=== PATIENT | male | born 1965 | race Two or more races ===

== ENCOUNTER 2020-12-26 09:30 | Inpatient (IN) | payer OTHER ==
[~2020-12-26] VITALS: Ht 172.7 cm; Wt 121.3 kg
[2020-12-26 10:10] LABS: Basophils # (auto) 0.1 10 ^3/uL (0-0.2); Basophils % (auto) 0.6 % (0.0-2.0); Eosinophils # (auto) 0.1 10 ^3/uL (0-0.8); Eosinophils % (auto) 0.6 % (0.0-7.0); Hematocrit 37.8 % (41.0-53.0); Hemoglobin 13.2 g/dL (13.5-17.5); Lymphocytes # (auto) 0.8 10 ^3/uL (0.4-5.4); Lymphocytes % (auto) 8.5 % (10.0-50.0); Mean Corpuscular Hgb Conc. 34.9 g/dL (32.0-36.0); Mean Corpuscular Volume 83.2 fL (80.0-100.0); Monocytes # (auto) 0.8 10 ^3/uL (0-1.3); Monocytes % (auto) 9.2 % (0.0-12.0); Neutrophils # (auto) 7.3 10 ^3/uL (1.6-8.6); Neutrophils % (auto) 81.1 % (37.0-80.0); Nucleated Red Blood Cells % 0.1 %; Platelet Count (auto) 276 10^3/uL (140-450); Red Blood Cells 4.54 10^6/uL (4.5-5.90); Red Cell Distribution Width 13.7 % (11.8-14.3)
[2020-12-26 10:34] LABS: Albumin 3.3 g/dL (3.4-5.0); Calcium 8.9 mg/dL (8.5-10.1); Potassium 3.6 mmol/L (3.5-5.1)
[2020-12-26 10:39] LABS: BUN/Creatinine Ratio 17.6; Bilirubin, Total 0.5 mg/dL (0.2-1.0); Total Protein 8.6 g/dL (6.4-8.2)
[2020-12-26] MEDS ORDERED: OMNIPAQUE ORAL SOLN 500ml 12mg/ml PO ONE (10:45)
[2020-12-26] MEDS ORDERED: ONDANSETRON HCL 4 MG/2 ML VIAL IV ONE (11:15)
[2020-12-26 11:48] LABS: INR 1.06 (0.9-1.15); Partial Thromboplastin Time 27.8 sec (23.0-31.2)
[2020-12-26] MEDS ORDERED: IOHEXOL 300 MG/ML 100ML BOTTLE IJ ONE (13:09)
[2020-12-26] MEDS: PANTOPRAZOLE 40 MG/10 ML VIAL INJ IV SCH ×2 (13:45→22:24)
[2020-12-26] MEDS: SUCRALFATE 1 GM/10 ML ORAL SUSP PO SCH ×3 (13:45→22:00)
[2020-12-26] MEDS ORDERED: NITROGLYCERIN 0.4 MG SL TAB SL PRN (16:30)
[2020-12-26] MEDS ORDERED: ACETAMINOPHEN 500 MG TAB PO PRN (16:30)
[2020-12-26] MEDS ORDERED: MORPHINE SULF INJ 2 MG/ML SYRINGE 1ML IV PRN (16:30)
[2020-12-26] MEDS ORDERED: DOCUSATE SOD 100 MG CAP PO PRN (16:30)
[2020-12-26] MEDS ORDERED: ONDANSETRON HCL 4 MG/2 ML VIAL IV PRN (16:30)
[2020-12-26] MEDS ORDERED: HYDROcodone-ACET 5/325MG TAB PO PRN (16:30)
[2020-12-26 16:37] LABS: Urine Bacteria FEW /hpf (None Seen); Urine Blood Negative /uL (Negative); Urine WBC 4 /hpf (0 - 3)
[2020-12-26] MEDS: MORPHINE SULF INJ 2 MG/ML SYRINGE 1ML IV PRN ×2 (16:38→22:24)
[2020-12-26 16:47] LABS: Cholesterol 138 mg/dL (< 200)
[2020-12-26 16:49] LABS: HDL Cholesterol 32 mg/dL (40-59); LDL Cholesterol 94 mg/dL (< 100); Triglycerides 123 mg/dL (< 150)
[2020-12-26 20:34] VITALS: BP 148/99
[2020-12-26 21:54] VITALS: BP 148/99
[2020-12-27] MEDS: MORPHINE SULF INJ 2 MG/ML SYRINGE 1ML IV PRN (03:47)
[2020-12-27 05:00] VITALS: BP 155/89
[2020-12-27] MEDS: SUCRALFATE 1 GM/10 ML ORAL SUSP PO SCH ×2 (06:21→11:30)
[2020-12-27] MEDS ORDERED: LIDOCAINE VISCOUS 2% 15ML UD ONE (08:11)
[2020-12-27] MEDS ORDERED: SODIUM CHLORIDE LOCK 10 ML ONE (08:11)
[2020-12-27] MEDS ORDERED: diphenhdrAMINE HCL 50 MG/1 ML VL ONE (08:12)
[2020-12-27] MEDS ORDERED: NALOXONE HCL 0.4 MG/ML VIAL ONE (08:12)
[2020-12-27] MEDS ORDERED: FLUMAZENIL 0.1 MG/ML INJ 10ML MDV IV ONE (08:12)
[2020-12-27] MEDS: MIDAZOLAM HCL 5 MG/ML-1ML VIAL ONE ×2 (09:03→09:07)
[2020-12-27] MEDS: fentaNYL CITRATE 100 MCG/2 ML VL ONE ×2 (09:03→09:07)
[2020-12-27 09:30] VITALS: BP 141/83
[2020-12-27] MEDS ORDERED: GADOTERATE MEG 7.5 MMOL/15ml INJ (0.5MMOL/ml) IV ONE (09:57)
[2020-12-27] MEDS: PANTOPRAZOLE 40 MG/10 ML VIAL INJ IV SCH (11:14)
[2020-12-27 14:06] LABS: Calcium 8.8 mg/dL (8.5-10.1); Potassium 3.8 mmol/L (3.5-5.1)
[2020-12-27 14:08] LABS: BUN/Creatinine Ratio 20.7
== END 2020-12-27 14:00 | disposition left against medical advice (07) | DRG 444 ==
LOC: ER 09:30 → OVERFLOW 09:31 → CENTRAL 20:34
PROVIDERS: ADMIT Nurse Practitioner Acute Care; ATTEND Internal Medicine
PROC: 0DB68ZX Excision of Stomach, Via Natural or Artificial Opening Endoscopic, Diagnostic (ICD-10-PCS; principal; 2020-12-27 09:07)
DX: K80.20 Calculus of gallbladder without cholecystitis without obstruction (principal); G06.1 Intraspinal abscess and granuloma; Z68.41 Body mass index [BMI] 40.0-44.9, adult; E16.2 Hypoglycemia, unspecified; E66.9 Obesity, unspecified; R73.9 Hyperglycemia, unspecified; R16.0 Hepatomegaly, not elsewhere classified; Z20.822 Contact with and (suspected) exposure to COVID-19; Z53.29 Procedure and treatment not carried out because of patient's decision for other reasons; Z88.8 Allergy status to other drugs, medicaments and biological substances; Z82.49 Family history of ischemic heart disease and other diseases of the circulatory system; Z83.3 Family history of diabetes mellitus
CPT/HCPCS: 36415; 71045; 72131; 72158; 74177; 76705; 80048; 80053; 80061; 81001; 82306; 82607; 83036; 83735; 84154; 84443; 85025; 85610; 85652; 85730; 86141; 87040; 87077; 87081; 87186; 93005; 96374; 96376; C9113; G0378; J2250; J2405

== ENCOUNTER → 2022-08-18 | Outpatient (CLI) | payer OTHER ==
[2022-08-18 10:40] LABS: Basophils # (auto) 0.1 10 ^3/uL (0-0.2); Basophils % (auto) 0.7 % (0.0-2.0); Eosinophils # (auto) 0.2 10 ^3/uL (0-0.8); Eosinophils % (auto) 2.6 % (0.0-7.0); Hematocrit 44.1 % (41.0-53.0); Hemoglobin 14.8 g/dL (13.5-17.5); Lymphocytes # (auto) 1.5 10 ^3/uL (0.4-5.4); Lymphocytes % (auto) 20.7 % (10.0-50.0); Mean Corpuscular Hemoglobin 27.8 pg (28.0-32.0); Mean Corpuscular Hgb Conc. 33.5 g/dL (32.0-36.0); Mean Corpuscular Volume 82.9 fL (80.0-100.0); Monocytes # (auto) 0.6 10 ^3/uL (0-1.3); Monocytes % (auto) 8.7 % (0.0-12.0); Neutrophils % (auto) 67.3 % (37.0-80.0); Nucleated Red Blood Cells % 0.1 %; Red Blood Cells 5.33 10^6/uL (4.5-5.90); Red Cell Distribution Width 13.9 % (11.8-14.3); White Blood Cell 7.4 10^3/uL (4.4-10.8)
[2022-08-18 11:31] LABS: Calcium 8.9 mg/dL (8.5-10.1); Potassium 3.7 mmol/L (3.5-5.1)
[2022-08-18 11:33] LABS: % Iron Saturation 23.2 % (20-55)
[2022-08-18 11:52] LABS: BUN/Creatinine Ratio 22.1; Bilirubin, Total 0.7 mg/dL (0.2-1.0); Total Protein 7.8 g/dL (6.4-8.2)
[2022-08-18 11:56] LABS: Free T4 (Free Thyroxine) 1.2 ng/dL (0.89-1.76); Prostate Specific Antigen 0.44 ng/mL (0.0-4.0)
[2022-08-18 14:52] LABS: Urine Bacteria FEW /hpf (None Seen); Urine Blood Negative /uL (Negative); Urine Hyaline Cast FEW /lpf (0 - 2); Urine Mucus FEW (None Seen); Urine Specific Gravity 1.021 (1.001-1.035); Urine WBC 4 /hpf (0 - 3)
== END | disposition home or self-care (01) ==
LOC: LAB 10:06
PROVIDERS: ATTEND Nurse Practitioner
DX: I10 Essential (primary) hypertension (principal); E11.22 Type 2 diabetes mellitus with diabetic chronic kidney disease
CPT/HCPCS: 36415; 80053; 80061; 81001; 82043; 82274; 82306; 82607; 83036; 83540; 83550; 84153; 84439; 84443; 85025

== ENCOUNTER → 2023-08-14 | Outpatient (CLI) | payer OTHER ==
[2023-08-14 11:01] LABS: Alanine Aminotransferase 22 U/L (7-40); Albumin 4.4 g/dL (3.2-4.8); Alkaline Phosphatase 110 U/L (46-116); Aspartate Aminotransferase 10 U/L (13-40); BUN/Creatinine Ratio 16.7 (10.0-20.0); Bilirubin, Total 0.8 mg/dL (0.2-1.0); Blood Urea Nitrogen 13 mg/dL (9-23); Calcium 9.5 mg/dL (8.5-10.1); Carbon Dioxide 31 mmol/L (20-30); Cholesterol 133 mg/dL (< 200); Glucose 150 mg/dL (74-106); HDL Cholesterol 45 mg/dL (40-59); LDL Cholesterol 78 mg/dL (< 100); Total Protein 7.5 g/dL (5.7-8.2); Triglycerides 103 mg/dL (< 150)
[2023-08-14 11:36] LABS: Anion Gap 7 (5-15); Chloride 101 mmol/L (98-107); Potassium 3.9 mmol/L (3.5-5.1); Sodium 139 mmol/L (136-145)
[2023-08-14 12:30] LABS: Urine Bacteria NONE SEEN /hpf (None Seen); Urine Blood Negative /uL (Negative); Urine Clarity Clear (Clear); Urine Color Colorless (Yellow); Urine Protein, UAD Negative (Negative); Urine Specific Gravity 1.017 (1.001-1.035); Urine Urobilinogen Normal (Negative); Urine WBC 2 /hpf (0 - 3)
== END | disposition home or self-care (01) ==
LOC: LAB 10:16
PROVIDERS: ATTEND Nurse Practitioner
DX: E11.9 Type 2 diabetes mellitus without complications (principal); I10 Essential (primary) hypertension; E78.5 Hyperlipidemia, unspecified
CPT/HCPCS: 36415; 80053; 80061; 81001; 83036

== ENCOUNTER → 2024-05-02 | Outpatient (CLI) | payer OTHER ==
[2024-05-02 11:44] LABS: Alanine Aminotransferase 23 U/L (7-40); Albumin 4.5 g/dL (3.2-4.8); Alkaline Phosphatase 117 U/L (46-116); Anion Gap 6 (5-15); Aspartate Aminotransferase 11 U/L (13-40); BUN/Creatinine Ratio 17.8 (10.0-20.0); Blood Urea Nitrogen 13 mg/dL (9-23); Calcium 9.6 mg/dL (8.5-10.1); Carbon Dioxide 30 mmol/L (20-30); Chloride 103 mmol/L (98-107); Glucose 137 mg/dL (74-106); LDL Cholesterol 85 mg/dL (< 100); Potassium 3.7 mmol/L (3.5-5.1); Sodium 139 mmol/L (136-145); Triglycerides 77 mg/dL (< 150)
[2024-05-02 11:45] LABS: Bilirubin, Total 0.7 mg/dL (0.2-1.0); Cholesterol 131 mg/dL (< 200); HDL Cholesterol 38 mg/dL (40-59); Total Protein 7.6 g/dL (5.7-8.2)
== END | disposition home or self-care (01) ==
LOC: LAB 10:11
PROVIDERS: ATTEND Nurse Practitioner
DX: E11.9 Type 2 diabetes mellitus without complications (principal); E78.5 Hyperlipidemia, unspecified
CPT/HCPCS: 36415; 80053; 80061; 83036

== ENCOUNTER → 2024-09-02 | Outpatient (CLI) | payer OTHER ==
[2024-09-02 13:42] LABS: Alanine Aminotransferase 16 U/L (7-40); Alkaline Phosphatase 119 U/L (46-116)
[2024-09-02 13:43] LABS: Albumin 4.4 g/dL (3.2-4.8); Anion Gap 6 (5-15); Aspartate Aminotransferase 8 U/L (13-40); BUN/Creatinine Ratio 15.4 (10.0-20.0); Bilirubin, Total 0.6 mg/dL (0.2-1.0); Blood Urea Nitrogen 12 mg/dL (9-23); Calcium 9.8 mg/dL (8.7-10.4); Carbon Dioxide 32 mmol/L (20-31); Chloride 104 mmol/L (98-107); Glucose 105 mg/dL (74-106); Potassium 3.8 mmol/L (3.5-5.1); Sodium 142 mmol/L (136-145); Total Protein 7.6 g/dL (5.7-8.2)
== END | disposition home or self-care (01) ==
LOC: LAB 11:39
PROVIDERS: ATTEND Nurse Practitioner
DX: E11.9 Type 2 diabetes mellitus without complications (principal)
CPT/HCPCS: 36415; 80053; 83036

== ENCOUNTER → 2025-01-05 | Outpatient (CLI) | payer OTHER ==
[2025-01-05 12:27] LABS: Basophils # (auto) 0.1 10 ^3/uL (0-0.2); Eosinophils # (auto) 0.3 10 ^3/uL (0-0.8); Eosinophils % (auto) 2.9 % (0.0-7.0); Hematocrit 44.1 % (41.0-53.0); Hemoglobin 15.1 g/dL (13.5-17.5); Lymphocytes # (auto) 1.9 10 ^3/uL (0.4-5.4); Mean Corpuscular Hgb Conc. 34.3 g/dL (32.0-36.0); Mean Corpuscular Volume 84.7 fL (80.0-100.0); Monocytes # (auto) 0.8 10 ^3/uL (0-1.3); Monocytes % (auto) 8.3 % (0.0-12.0); Neutrophils # (auto) 6.7 10 ^3/uL (1.6-8.6); Neutrophils % (auto) 68.8 % (37.0-80.0); Platelet Count (auto) 256 10^3/uL (140-450); Red Blood Cells 5.21 10^6/uL (4.5-5.90); Red Cell Distribution Width 13.7 % (11.8-14.3); White Blood Cell 9.8 10^3/uL (4.4-10.8)
[2025-01-05 12:30] LABS: Urine Bacteria FEW /hpf (None Seen); Urine Blood Negative /uL (Negative); Urine Clarity Clear (Clear); Urine Color Light-Yellow (Yellow); Urine Protein, UAD Negative (Negative); Urine Specific Gravity 1.022 (1.001-1.035); Urine Squamous Epithelial Cell FEW /hpf (<5); Urine Urobilinogen Normal (Negative); Urine WBC 1 /HPF (0-3); Urine pH 6.5 (5.0-9.0)
[2025-01-05 13:09] LABS: Alanine Aminotransferase 22 U/L (7-40); Albumin 4.7 g/dL (3.2-4.8); Alkaline Phosphatase 122 U/L (46-116); Anion Gap 8 (5-15); BUN/Creatinine Ratio 18.8 (10.0-20.0); Blood Urea Nitrogen 13 mg/dL (9-23); Calcium 9.8 mg/dL (8.7-10.4); Carbon Dioxide 30 mmol/L (20-31); Chloride 103 mmol/L (98-107); Glucose 108 mg/dL (74-106); LDL Cholesterol 81 mg/dL (< 100); Potassium 4.2 mmol/L (3.5-5.1); Sodium 141 mmol/L (136-145); Triglycerides 79 mg/dL (< 150)
[2025-01-05 13:10] LABS: Aspartate Aminotransferase 9 U/L (13-40); Bilirubin, Total 0.5 mg/dL (0.2-1.0); Cholesterol 130 mg/dL (< 200); HDL Cholesterol 45 mg/dL (40-59); Total Protein 7.6 g/dL (5.7-8.2)
== END | disposition home or self-care (01) ==
LOC: LAB 12:03
PROVIDERS: ATTEND Nurse Practitioner
DX: E11.9 Type 2 diabetes mellitus without complications (principal); I10 Essential (primary) hypertension; E78.5 Hyperlipidemia, unspecified
CPT/HCPCS: 36415; 80053; 80061; 81001; 82043; 83036; 84153; 84443; 85025

== ENCOUNTER 2025-03-31 10:25 | Inpatient (IN) | payer OTHER ==
[~2025-03-31] VITALS: Ht 172.7 cm; Wt 130.4 kg
--- NOTE | 2025-03-31 11:33 | ED.PDOC ---
Back pain HPI HPI Comments A 59 YEAR OLD MALE PRESENTS TO THE ED WITH CHIEF COMPLAINT OF LEFT LEG PAIN. PATIENT REPORTS THAT HE HAS BEEN EXPERIENCING LEFT LOWER BACK PAIN THAT RADIATES DOWN HIS LEG FOR THE PAST 3 DAYS. 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 LOWER BACK PAIN RADIATES TO LEFT LOWER LEG STARTED 4 DAYS AGO. PAIN INCREASES WITH WALKING AND STANDING. PATIENT DENIES ANY NUMBNESS, WEAKNESS, TINGLING, FALL, OR FALL INJURY. PT DENIES FEVER, SOB, CHEST PAIN, ABD PAIN, NAUSEA, VOMITING AND OTHER COMPLAINTS. NO OTHER SYMPTOMS REPORTED AT THIS TIME OF CARE. Chief Complaint: Lower Extremity Time Seen by MD: 11:30 Primary Care Provider: [facility] Notes: Nurses Notes, Medications, Allergies Allergies: Coded Allergies: Amoxicillin (Verified Allergy, Unknown, 03/31/25) Uncoded Allergies: TRICICLINE (Allergy, Severe, 12/26/20) Home Meds No Active Prescriptions or Reported Meds Information Source: Patient, Spouse Mode of Arrival: Wheelchair Timing: Days Duration: Since onset Location of Back pain: (L) Lower back Radiates to: Posterior: (L) Buttocks, (L) Thigh Radiates to: Lateral: (L) Buttocks, (L) Thigh Severity: Moderate Prehospital treatment: None Quality: Aching Onset: Spontaneous History of: Chronic Back Pain Modifying Factors: Movement, Twisting, Walking Associated signs and symptoms: None Past Medical History PAST MEDICAL HISTORY: UTI'S Past Medical History (Other): OSTEOMYELITIS OF SPINE X4 YEARS AGO Surgical History: Denies all surgeries Family History Family History: Family hx of DM, Family hx of HTN Social History Smoker: Non-Smoker Alcohol: Rarely Drugs: Denies Drug Use Lives In: Home Constitutional: denies: chills, diaphoresis, fatigue, fever, malaise, sweats, weakness, others EENTM: denies: blurred vision, double vision, ear bleeding, ear discharge, ear drainage, ear pain, ear ringing, eye pain, eye redness, hearing loss, mouth pain, mouth swelling, nasal discharge, nose bleeding, nose congestion, nose pain, photophobia, tearing, throat pain, throat swelling, voice changes, others Respiratory: denies: cough, hemoptysis, orthopnea, SOB at rest, shortness of breath, SOB with excertion, stridor, wheezing, others Cardiovascular: denies: chest pain, dizzy spells, diaphoresis, Dyspnea on exertion, edema, irregular heart beat, left arm pain, lightheadedness, palpitations, PND, syncope, others Gastrointestinal: denies: abdomen distended, abdominal pain, blood streaked bowels, constipated, diarrhea, dysphagia, difficulty swallowing, hematemesis, melena, nausea, poor appetite, poor fluid intake, rectal bleeding, rectal pain, vomiting, others Genitourinary: denies: burning, dysuria, flank pain, frequency, hematuria, incontinence, penile discharge, penile sore, pain, testicle pain, testicle swelling, urgency, others Neurological: denies: dizziness, fainting, headache, left sided numbness, left sided weakness, numbness, paresthesia, pre-existing deficit, right sided numbness, right sided weakness, seizure, speech problems, tingling, tremors, weakness, others Musculoskeletal: reports: back pain, muscle pain; denies: gout, joint pain, joint swelling, muscle stiffness, neck pain, others Integumetry: denies: bruises, change in color, change in hair/nails, dryness, laceration, lesions, lumps, rash, wounds, others Allergic/Immunocompromised: denies: Difficulty Healing, Frequent Infections, Hives, Itching, others Hematologic/Lymphatic: denies: anemia, blood clots, easy bleeding, easy bruising, swollen glands, others Psychiatric: denies: anxiety, bipolar disorder, depression, hopeless, panic disorder, schizophrenia, sleepless, suicidal, others All Other Systems: Reviewed and Negative Physical Exam General Appearance: No Apparent Distress, Obese HEENT: Normal ENT Inspection, PERRL/EOMI, Pharynx Normal, TMs Normal Neck: Full Range of Motion, Non-Tender, Normal, Normal Inspection Respiratory: Chest Non-Tender, Lungs Clear, No Accessory Muscle Use, No Respiratory Distress, Normal Breath Sounds Cardiovascular: No Edema, No JVD, No Murmur, No Gallop, Normal Peripheral Pulses, Regular Rate/Rhythm Breast Exam: Deferred Gastrointestinal: No Organomegaly, Non Tender, No Pulsatile Mass, Normal Bowel Sounds, Soft Genitalia: Deferred Pelvic: Deferred Rectal: Deferred Extremities: No calf tenderness, Normal capillary refill, Normal inspection, Normal range of motion, Non-tender, No pedal edema Musculoskeletal : Location: Left Extremity Location: Back Apperance: Tenderness: Moderate (AND MUSCLE TIGHTNESS ON LOWER BACK, NO BONY TENDERNESS, SWELLING AND DEFORMITY. ), Other (NO REDNESS, SWELLING AND DVT SIGNS OF LEFT LOWER EXTREMITY. ) Neurologic: Alert, material checker II-XII nml as Tested, No Motor Deficits, Normal Affect, Normal Mood, No Sensory Deficits Cerebellar Function: Normal Reflexes: Normal Skin: Dry, Normal Color, Warm Peripheral Pulses: 2+ carotid (R), 2+ carotid (L), 2+ dorsalis pedis (R), 2+ dorsalis pedis (L) Lymphatic: No Adenopathy Was a procedure done? Was a procedure done?: No Back Pain Differential Dx Differential Diagnosis: Musculoskeletal Pain, Other (SPINAL STENOSIS, DDD OF LOWER BACK, RADICULOPATHY ) X-Ray, Labs, Meds, VS Vital Signs Date Time Temp Pulse Resp B/P (MAP) Pulse Ox O2 Delivery O2 Flow Rate FiO2 03/31/25 11:17 89 16 97 Room Air 03/31/25 11:17 98.1 89 16 155/106 (122) 97 98.1 03/31/25 11:07 98.1 89 16 155/106 (122) 97 98.1 Lab Test 03/31/25 12:26 03/31/25 12:17 Range/Units White Blood Count 9.0 4.4-10.8 10^3/uL Red Blood Count 5.43 4.5-5.90 10^6/uL Hemoglobin 15.6 13.5-17.5 g/dL Hematocrit 45.3 41.0-53.0 % Mean Corpuscular Volume 83.5 80.0-100.0 fL Mean Corpuscular Hemoglobin 28.7 28.0-32.0 pg Mean Corpuscular Hemoglobin Concent 34.4 32.0-36.0 g/dL Red Cell Distribution Width 13.9 11.8-14.3 % Platelet Count 277 140-450 10^3/uL Mean Platelet Volume 8.8 6.9-10.8 fL Neutrophils (%) (Auto) 77.8 37.0-80.0 % Lymphocytes (%) (Auto) 13.9 10.0-50.0 % Monocytes (%) (Auto) 6.8 0.0-12.0 % Eosinophils (%) (Auto) 0.7 0.0-7.0 % Basophils (%) (Auto) 0.8 0.0-2.0 % Neutrophils # (Auto) 7.0 1.6-8.6 10 ^3/uL Lymphocytes # (Auto) 1.3 0.4-5.4 10 ^3/uL Monocytes # (Auto) 0.6 0-1.3 10 ^3/uL Eosinophils # (Auto) 0.1 0-0.8 10 ^3/uL Basophils # (Auto) 0.1 0-0.2 10 ^3/uL Nucleated Red Blood Cells 0.4 % Sodium Level 141 136-145 mmol/L Potassium Level 3.9 3.5-5.1 mmol/L Chloride Level 102 98-107 mmol/L Carbon Dioxide Level 29 20-31 mmol/L Anion Gap 10 5-15 Blood Urea Nitrogen 20 9-23 mg/dL Creatinine 0.81 0.700-1.30 mg/dL Glomerular Filtration Rate Calc 103 >90 mL/min BUN/Creatinine Ratio 24.7 H 10.0-20.0 Serum Glucose 119 H 74-106 mg/dL Hemoglobin A1c 6.2 H <5.7 % A1C Lactic Acid Level 1.6 0.4-2.0 mmol/L Calcium Level 9.4 8.7-10.4 mg/dL C-Reactive Protein High Sensitivity 0.93 <1.0 mg/dL Urine Color Yellow Yellow Urine Clarity Turbid H Clear Urine pH 5.5 5.0-9.0 Urine Specific [place] 1.034 1.001-1.035 Urine Protein 1+ H Negative Urine Ketones Negative Negative Urine Blood Negative Negative /uL Urine Nitrite Negative Negative Urine Bilirubin Negative Negative Urine Urobilinogen Normal Negative mg/dL Urine Leukocyte Esterase Negative Negative /uL Urine RBC 4 0 - 3 /hpf Urine Microscopic WBC 5 H 0-3 /HPF Urine Squamous Epithelial Cells Few <5 /hpf Urine Calcium Oxalate Crystals Mod None Seen Urine Bacteria Few H None Seen /hpf Urine Hyaline Casts Mod 0 - 2 /lpf Urine Mucus Few None Seen Urine Glucose Normal Normal mg/dL Current Medications Medications (Trade) Dose Ordered Sig/Gideon Route Start Time Stop Time Status Last Admin Ketorolac Tromethamine (Toradol Injection) 30 mg ONCE ONCE IV 03/31/25 12:15 03/31/25 12:16 DC 03/31/25 12:32 PATIENT: SHEILA FLORES: [id number]: [id number] : 1965 LOC: ER ROOM / BED: / AGE / SEX: 59 / M ADM STATUS: REG ER SERVICE [id number] ORDERING PHYSICIAN: LJ AZEVEDO PROCEDURE(s): LS2CT - LS SPINE WO CONTRAST REASON: LOWER BACK PAIN TO LEFT LOWER LEG ORDER NUMBER(s): [id number], ACCESSION NUMBER(s): [id number] Indication: LOWER BACK PAIN TO LEFT LOWER LEG Technique: CT axial images of the lumbar spine are obtained without contrast. Coronal and sagittal reformats were obtained. Radiation Dose Information: CTDI volume is 38.94 mGy. Dose-length product is 1237.62 mGy*cm Comparison: LS SPINE WO CONTRAST on DOS: 12/26/20 FINDINGS: The lumbar vertebral body heights are maintained. Nxpa-bx-ebwnbjew multilevel disc space narrowing. Ihts-eq-faoildzg lumbar facet hypertrophic changes. Mild bilateral sacroiliac degenerative joint disease. Moderate to severe neural foraminal stenosis at L3-4, L4-5 and L5-S1. There is a 4 mm disc protrusion at L5-S1. Abdominal aortic atherosclerotic disease. IMPRESSION: 1. Tuqq-ue-uiexvmmd lumbar degenerative disc disease. 2. Moderate to severe neural foraminal stenosis L3-4, L4-5 and L5-S1. ATED BY: SARAH GRANADOS MD DICTATED DATE/TIME: 03/31/25 122 SIGNED BY: SARAH GRANADOS MD SIGNED DATE/TIME: 03/31/25 1222 CC: X-Ray, Labs, Meds, VS Comment EXTERNAL MEDICAL RECORDS REVIEWED: [NONE] INDEPENDENT HISTORIANS: SPOUSE SOCIAL DETERMINANTS OF HEALTH: [NONE] LABS ORDERED: CBC, BMP, UA REVIEWED AND INTERPRETED RESULTS: CT LS-SPINE, SEE REPORT. L-SPINE MRI: PENDING IMAGING ORDERED: CT LS-SPINE TREATMENTS ORDERED: TORADOL 30MG IV PROCEDURES PERFORMED: NONE CRITICAL CARE TIME: NONE I HAVE DISCUSSED THE PATIENT WITH THE ATTENDING PHYSICIAN DR. PUENTES AND HE AGREES WITH THE PATIENT'S PLAN OF CARE AND DISPOSITION. DR. MUNIZ ADVISED TO HAVE AN MRI ORDERED FOR PATIENT ALONG WITH LABS. PATIENT IS TO BE ADMITTED TO THE HOSPITAL FOR FURTHER EVALUATION AND TREATMENT. Time of 1ST Reevaluation: 11:45 Reevaluation 1ST: Unchanged Time of 2ND Reevaluation: 13:00 Reevaluation 2ND: Unchanged Patient Education/Counseling: Diagnosis, Treatment Family Education/Counseling: Diagnosis, Treatment Departure 1 Departure Time of Disposition: 13:00 Impression: Primary Impression: Spinal stenosis of lumbar region at multiple levels Additional Impression: Lumbar radiculopathy, acute Disposition: ADMITTED INPATIENT Condition: Serious e-Prescriptions No Active Prescriptions or Reported Meds Critical Care Note Critical Care Time?: No Stability Stability form required: No Unstable for transfer: Requires medication, ED Physician Assesment, Possible rapid decline Heart Score Heart Score: Heart Score Response (Comments) Value History N/A 0 EKG N/A 0 Age N/A 0 Risk Factors N/A 0 Troponin N/A 0 Total 0 I personally scribed for LJ AZEVEDO PA ([email or web address]) on 03/31/25 at 11:33. Electronically submitted by Renard Matt ([email or web address]). I personally scribed for LILLIANA AZEVEDOA PA ([email or web address]) on 03/31/25 at 11:59. Electronically submitted by Renard Matt ([email or web address]). I personally scribed for LILLIANA AZEVEDOA PA ([email or web address]) on 03/31/25 at 12:59. Electronically submitted by Renard Matt ([email or web address]). I personally scribed for LILLIANA AZEVEDOA PA ([email or web address]) on 03/31/25 at 13:01. Electronically submitted by Renard Matt ([email or web address]). LJ AZEVEDO PA March 31, 2025 11:33
--- NOTE | 2025-03-31 12:24 | DVH ---
Indication: LOWER BACK PAIN TO LEFT LOWER LEG Technique: CT axial images of the lumbar spine are obtained without contrast. Coronal and sagittal re formats were obtained. Radiation Dose Information: CTDI volume is 38.94 mGy. Dose-length product is 1237.62 mGy*cm Comparison: LS SPINE WO CONTRAST on DOS: 12/26/20 FINDINGS: The lumbar vertebral body heights are maintained. Gcqb-ul-ubpsycvt multilevel disc space narrowing. Wjlx-ec-ymqmibhw lumbar facet hypertrophic changes. Mild bilateral sacroiliac degenerative joint dis ease. Moderate to severe neural foraminal stenosis at L3-4, L4-5 and L5-S1. There is a 4 mm disc protrusion at L5-S1. Abdominal aortic atherosclerotic disease. IMPRESSION: 1. Kesb-nl-ktbqyris lumbar degenerative disc disease. 2. Moderate to severe neural foraminal stenosis L3-4, L4-5 and L5-S1.
[2025-03-31] MEDS: KETOROLAC TROMETH 30 MG/ML 1ML VIAL IV ONE (12:32)
[2025-03-31 12:44] LABS: Basophils # (auto) 0.1 10 ^3/uL (0-0.2); Basophils % (auto) 0.8 % (0.0-2.0); Eosinophils # (auto) 0.1 10 ^3/uL (0-0.8); Eosinophils % (auto) 0.7 % (0.0-7.0); Hematocrit 45.3 % (41.0-53.0); Hemoglobin 15.6 g/dL (13.5-17.5); Lymphocytes # (auto) 1.3 10 ^3/uL (0.4-5.4); Lymphocytes % (auto) 13.9 % (10.0-50.0); Mean Corpuscular Hemoglobin 28.7 pg (28.0-32.0); Mean Corpuscular Hgb Conc. 34.4 g/dL (32.0-36.0); Mean Corpuscular Volume 83.5 fL (80.0-100.0); Monocytes # (auto) 0.6 10 ^3/uL (0-1.3); Monocytes % (auto) 6.8 % (0.0-12.0); Neutrophils % (auto) 77.8 % (37.0-80.0); Nucleated Red Blood Cells % 0.4 %; Platelet Count (auto) 277 10^3/uL (140-450); Red Blood Cells 5.43 10^6/uL (4.5-5.90); Red Cell Distribution Width 13.9 % (11.8-14.3)
[2025-03-31] MEDS ORDERED: ACETAMINOPHEN 325 MG TAB PO PRN (12:45)
[2025-03-31] MEDS ORDERED: ONDANSETRON HCL 4 MG/2 ML VIAL IV PRN (12:45)
[2025-03-31 12:53] LABS: Urine Bacteria FEW /hpf (None Seen); Urine Blood Negative /uL (Negative); Urine Clarity Turbid (Clear); Urine Color Yellow (Yellow); Urine Hyaline Cast MOD /lpf (0 - 2); Urine Mucus FEW (None Seen); Urine Protein, UAD 1+ (Negative); Urine Specific Gravity 1.034 (1.001-1.035); Urine Squamous Epithelial Cell FEW /hpf (<5); Urine Urobilinogen Normal (Negative); Urine WBC 5 /HPF (0-3); Urine pH 5.5 (5.0-9.0)
[2025-03-31 12:55] LABS: Chloride 102 mmol/L (98-107); Potassium 3.9 mmol/L (3.5-5.1); Sodium 141 mmol/L (136-145)
[2025-03-31 12:56] LABS: Anion Gap 10 (5-15); Calcium 9.4 mg/dL (8.7-10.4); Carbon Dioxide 29 mmol/L (20-31)
[2025-03-31] MEDS ORDERED: DEXTROSE (50%) 50ML SYRG IV PRN (13:00)
[2025-03-31 13:01] LABS: BUN/Creatinine Ratio 24.7 (10.0-20.0); Blood Urea Nitrogen 20 mg/dL (9-23); Glucose 119 mg/dL (74-106)
--- NOTE | 2025-03-31 13:07 | DVHHP2 ---
History of Present Illness Reason for Visit: Back pain History of Present Illness Fernandez Pineda is a 59-year-old male with past medical history of diabetes, cholelithiasis, chronic back pain, osteomyelitis in the spine 4 years ago, UTI, and EGD who presents to the ED with worsening back pain x3 days. Patient states that the pain when it starts it is 10/10 in his constant in his shooting pains down to his leg. He reports that lying down makes it better however any movement or shifting makes the pain worse. Rolando Regan is at the chair side. Patient reports that he is compliant with his medications. Patient reports that he uses a cane with ambulation. Patient denies any chest pain, fevers, chills, shortness of breath, abdominal pain, nausea, vomiting, diarrhea, recent trauma or injury, recent sick contacts, recent travels, or recent ingestion of spoiled food. Renal/: UTI Endocrine: Diabetes Past Medical History Chronic back pain Osteomyelitis in the spine 4 years ago Past Surgical History: Other (EGD) Family History: DM, Hypertension, Other (Mom with diabetes and hypertension) Smoke: No ALCOHOL: none Drugs: None Lives: with Family Domestic Violence: Neg Review of Systems Musculoskeletal: back pain, leg pain Allergies: Coded Allergies: Amoxicillin (Verified Allergy, Unknown, 03/31/25) Uncoded Allergies: TRICICLINE (Allergy, Severe, 12/26/20) Medications Current Medications Medications Dose Ordered Sig/Gideon Route Start Time Stop Time Status Last Admin Dose Admin Acetaminophen/ Hydrocodone Bitart 1 tab Q4HP PRN PO 03/31/25 12:45 UNV Ondansetron HCl 4 mg Q4HP PRN IV 03/31/25 12:45 UNV Acetaminophen 650 mg Q6HP PRN PO 03/31/25 12:45 UNV Morphine Sulfate 2 mg Q4HPRN PRN IV 03/31/25 12:45 UNV Diagnostic Test (Pha) 1 strip ACHS 03/31/25 17:00 UNV Insulin Human Regular ACHS SC 03/31/25 17:00 UNV Dextrose 50 ml UD PRN IV 03/31/25 13:00 UNV Atorvastatin Calcium 10 mg HS PO 03/31/25 22:00 UNV Hydrochlorothiazide 25 mg DAILY PO 04/01/25 10:00 UNV Amlodipine Besylate 5 mg DAILY PO 04/01/25 10:00 UNV Exam Vital Signs Vital Signs Date Time Temp Pulse Resp B/P (MAP) Pulse Ox O2 Delivery O2 Flow Rate FiO2 03/31/25 11:17 89 16 97 Room Air 03/31/25 11:17 98.1 155/106 (122) 98.1 General Appearance: Alert, Oriented X3, Cooperative, No acute distress HEENT: Atraumatic, PERRLA, EOMI, Mucous membr. moist/pink Respiratory: Clear to auscultation, Normal air movement Cardiovascular: Normal S1, Normal S2, No murmurs Abdominal: Normal bowel sounds, Soft Extremities: No clubbing, No cyanosis, Normal pulses Skin: No significant lesion Neuro: Normal speech, Normal tone, Sensation intact Psych/Mental Status: Mental status NL, Mood NL Labs/Xrays Labs Test 03/31/25 12:26 03/31/25 12:17 Range/Units White Blood Count 9.0 4.4-10.8 10^3/uL Red Blood Count 5.43 4.5-5.90 10^6/uL Hemoglobin 15.6 13.5-17.5 g/dL Hematocrit 45.3 41.0-53.0 % Mean Corpuscular Volume 83.5 80.0-100.0 fL Mean Corpuscular Hemoglobin 28.7 28.0-32.0 pg Mean Corpuscular Hemoglobin Concent 34.4 32.0-36.0 g/dL Red Cell Distribution Width 13.9 11.8-14.3 % Platelet Count 277 140-450 10^3/uL Mean Platelet Volume 8.8 6.9-10.8 fL Neutrophils (%) (Auto) 77.8 37.0-80.0 % Lymphocytes (%) (Auto) 13.9 10.0-50.0 % Monocytes (%) (Auto) 6.8 0.0-12.0 % Eosinophils (%) (Auto) 0.7 0.0-7.0 % Basophils (%) (Auto) 0.8 0.0-2.0 % Neutrophils # (Auto) 7.0 1.6-8.6 10 ^3/uL Lymphocytes # (Auto) 1.3 0.4-5.4 10 ^3/uL Monocytes # (Auto) 0.6 0-1.3 10 ^3/uL Eosinophils # (Auto) 0.1 0-0.8 10 ^3/uL Basophils # (Auto) 0.1 0-0.2 10 ^3/uL Nucleated Red Blood Cells 0.4 % Indication: LOWER BACK PAIN TO LEFT LOWER LEG Technique: CT axial images of the lumbar spine are obtained without contrast. Coronal and sagittal reformats were obtained. Radiation Dose Information: CTDI volume is 38.94 mGy. Dose-length product is 1237.62 mGy*cm Comparison: LS SPINE WO CONTRAST on DOS: 12/26/20 FINDINGS: The lumbar vertebral body heights are maintained. Ykgy-xd-ynqwgekk multilevel disc space narrowing. Rmdv-tr-sdfucijk lumbar facet hypertrophic changes. Mild bilateral sacroiliac degenerative joint disease. Moderate to severe neural foraminal stenosis at L3-4, L4-5 and L5-S1. There is a 4 mm disc protrusion at L5-S1. Abdominal aortic atherosclerotic disease. IMPRESSION: 1. Qmdb-ry-zvylvhue lumbar degenerative disc disease. 2. Moderate to severe neural foraminal stenosis L3-4, L4-5 and L5-S1. Assessment/Plan Assessment/Plan Assessment Intractable back pain likely due to Moderate to severe neural foraminal stenosis L3-4, L4-5 and L5-S1 Pryd-og-pmxjxjuu lumbar degenerative disc disease Morbid obesity History of diabetes type 2 History of chronic back pain History of UTIs History of EGD History of osteomyelitis in the spine 4 years ago Plan Admit to med surge Antiemetics Pain management CRP Lactic UA Hemoglobin A1c ISS and Accu-Cheks Diet CT lumbar spine noted MRI lumbar spine ordered Home medications reconciled DVT prophylaxis-SCDs PUD prophylaxis-PPIs Discussed plan of care with patient, patient's , and nurse Spinal consult Plan discussed with: Patient, Spouse My Orders Orders - BUNNY MOORE SAP BASIS Procedure Category Date Status Time Admit ADMIT 03/31/25 Transmitted 12:39 Allergies MORRO 03/31/25 In Process 12:39 Code Status CODE 03/31/25 Transmitted 12:39 Hydrocodone-Acet PHA 03/31/25 Logged 5/325mg Tab (Stem 12:45 Ondansetron Hcl PHA 03/31/25 Logged (Zofran) 12:45 Complete Blood Count LAB 04/01/25 Verified 04:00 Comprehensive LAB 04/01/25 Verified Metabolic Panel 04:00 Acetaminophen Tablet PHA 03/31/25 Logged (Tylenol Tablet) 12:45 Morphine Sulfate PHA 03/31/25 Logged Injection 12:45 Sequential MORRO 03/31/25 In Process Compression Device Consultdr. Deangelo CONS 03/31/25 Transmitted [place](Spine) 12:39 Hemoglobin A1c LAB 03/31/25 In Process 12:53 Glucose Blood PHA 03/31/25 Logged (Accu-Chek Comfort 17:00 Insulin R (Human) PHA 03/31/25 Logged (Insulin R) 17:00 Dextrose 50% Syringe PHA 03/31/25 Logged 13:00 Atorvastatin (Lipitor) PHA 03/31/25 Logged 22:00 Hydrochlorothiazide PHA 04/01/25 Logged Tablet (Hydrochlorot 10:00 Amlodipine Tablet PHA 04/01/25 Logged (Norvasc Tablet) 10:00 Date of Service: March 31, 2025 Billing Provider: BUNNY MOORE Common Visit Codes: [id number] INP/OBS CARE (HIGH) BUNNY MOORE March 31, 2025 13:07
[2025-03-31 13:25] LABS: CRP High Sensitivity 0.93 mg/dL (<1.0)
[2025-03-31 13:26] VITALS: PULSE 89; RESP 16; O2SAT 96
[2025-03-31] MEDS: GADOTERATE MEG 10 MMOL/20ml INJ (0.5MMOL/ml) IV ONE (13:32)
--- NOTE | 2025-03-31 14:38 | DVH ---
PROCEDURE: MRI LUMBAR SPINE WO W CONTRST INDICATION: LOW BACK PAIN, HX OF OSTEOMYELITIS Exam Date: 03/31/2025 01:35 PM COMPARISON: LUMBAR SPINE WO W CONTRST on DOS: 12/27/20 TECHNIQUE: MRI lumbar spine with and without 15 mL Gadavist gadolinium IV contrast. FINDINGS: No fracture or listhesis of the lumbar spine. The conus terminates at L1. No abnormal postcontrast en hancement is identified throughout the visualized bony structures. L1-L2: There is a circumferential broad disc bulge with endplate hypertrophy, most prominent anterior ly. There is mild bilateral facet hypertrophy. No significant spinal canal stenosis or neural foramin al stenosis bilaterally. L2-L3: There is a mild circumferential broad disc bulge. There is bilateral facet and ligamentum flav um hypertrophy. No significant spinal canal stenosis. There is mild bilateral neural foraminal stenos is. L3-L4: There is a circumferential broad disc bulge with endplate hypertrophy, most prominent anterior ly. There is bilateral facet and left ligamentum flavum hypertrophy. No significant spinal canal keith nosis. There is mild bilateral neural foraminal stenosis. L4-L5: There is disc desiccation without loss of disc height. There is a minimal circumferential bro ad disc bulge. There may be a left foraminal disc annulus tear. There is bilateral facet hypertrophy, greater on the right. No significant spinal canal stenosis. There is mild right and moderate left n eural foraminal stenosis. L5-S1: There is disc desiccation with slight loss of disc height. There is a broad posterior disc her niation with disc annulus tear, measuring 4.5 mm AP in the midline (image 8, series 5 and 12). There is mild bilateral facet hypertrophy. The AP dimension of the spinal canal measures 9 mm. There is mod erate right and mild left neural foraminal stenosis. IMPRESSION: 1. No fracture of the lumbar spine. 2. Degenerative disc disease and facet arthropathy with significant neural foraminal stenosis at L4-L 5 on the left and L5-S1 on the right. These findings May correspond to lower extremity radicular sym ptoms in the left L4 and right L5 nerve root distributions. 3. Mild spinal canal stenosis L4-L5. 4. No evidence of osteomyelitis or discitis about the lumbar spine.
[2025-03-31 14:57] VITALS: BP 148/81; PULSE 77; RESP 16; TEMP 98.1; O2SAT 94
[2025-03-31 15:02] VITALS: RESP 18; O2SAT 95
[2025-03-31] MEDS: HYDROcodone-ACET 5/325MG TAB PO PRN (15:18)
[2025-03-31 16:56] VITALS: BP 170/87; PULSE 77; RESP 19; TEMP 98.3; O2SAT 93
[2025-03-31] MEDS: InsuLIN REG 1unit/0.01ml Soln (100units/ml) SC SCH (17:00)
[2025-03-31] MEDS: ACCU-CHEK COMFORT CURVE STRIP VI SCH (18:20)
[2025-03-31 20:00] VITALS: PULSE 74
[2025-03-31 21:00] VITALS: BP 152/91; PULSE 80; RESP 20; TEMP 97.5; O2SAT 98
[2025-03-31] MEDS: ATORVASTATIN 20 MG TAB PO SCH (21:59)
[2025-04-01] VITALS (8 sets, daily range): BP systolic 142–172; BP diastolic 69–96; PULSE 72–81; RESP 18–20; TEMP 96.8–98.4; O2SAT 92–99
[2025-04-01 07:19] LABS: Basophils # (auto) 0 10 ^3/uL (0-0.2); Basophils % (auto) 0.6 % (0.0-2.0); Eosinophils # (auto) 0.2 10 ^3/uL (0-0.8); Eosinophils % (auto) 2.6 % (0.0-7.0); Hematocrit 46.1 % (41.0-53.0); Hemoglobin 15.8 g/dL (13.5-17.5); Lymphocytes # (auto) 1.5 10 ^3/uL (0.4-5.4); Lymphocytes % (auto) 18.9 % (10.0-50.0); Mean Corpuscular Hemoglobin 28.8 pg (28.0-32.0); Mean Corpuscular Hgb Conc. 34.3 g/dL (32.0-36.0); Monocytes # (auto) 0.7 10 ^3/uL (0-1.3); Monocytes % (auto) 8.4 % (0.0-12.0); Neutrophils # (auto) 5.6 10 ^3/uL (1.6-8.6); Neutrophils % (auto) 69.5 % (37.0-80.0); Nucleated Red Blood Cells % 0.1 %; Platelet Count (auto) 252 10^3/uL (140-450); Red Blood Cells 5.49 10^6/uL (4.5-5.90)
[2025-04-01 07:37] LABS: Alanine Aminotransferase 29 U/L (7-40); Alkaline Phosphatase 108 U/L (46-116); Anion Gap 11 (5-15); BUN/Creatinine Ratio 23.3 (10.0-20.0); Blood Urea Nitrogen 17 mg/dL (9-23); Calcium 9.7 mg/dL (8.7-10.4); Carbon Dioxide 29 mmol/L (20-31); Chloride 101 mmol/L (98-107); Sodium 141 mmol/L (136-145); Total Protein 7.7 g/dL (5.7-8.2)
[2025-04-01 07:38] LABS: Albumin 4.4 g/dL (3.2-4.8)
[2025-04-01 07:39] LABS: Aspartate Aminotransferase 17 U/L (13-40); Bilirubin, Total 0.7 mg/dL (0.2-1.0)
[2025-04-01 07:46] LABS: Glucose 126 mg/dL (74-106); Potassium 3.2 mmol/L (3.5-5.1)
[2025-04-01] MEDS: PANTOPRAZOLE 40 MG/10 ML VIAL INJ IV SCH (09:44)
[2025-04-01] MEDS: amLODIPine BESYLATE 5 MG TAB PO SCH (09:44)
[2025-04-01] MEDS: hydroCHLOROthiazide 25 MG TAB PO SCH (09:44)
--- NOTE | 2025-04-01 12:32 | DVHPN2 ---
Reviewed: Care Plan, H&P, Labs, Medications, Previous Orders, Radiology Changes from previous H/P or p: No Changes Musculoskeletal: back pain, leg pain Objective Vitals Vital Signs Date Time Temp Pulse Resp B/P (MAP) Pulse Ox O2 Delivery O2 Flow Rate FiO2 04/01/25 09:44 169/91 04/01/25 09:00 97.8 74 20 92 97.8 03/31/25 15:02 Room Air* 0 21 Intake/Output Intake and Output 04/01/25 07:00 Intake Total 1260 ml Balance 1260 ml Intake Oral 1260 ml # Voids 6 # Bowel Movements 1 Medications Current Medications Medications Dose Ordered Sig/Gideon Route Start Time Stop Time Status Last Admin Dose Admin Acetaminophen/ Hydrocodone Bitart 1 tab Q4HP PRN PO 03/31/25 12:45 04/01/25 10:37 1 TAB Ondansetron HCl 4 mg Q4HP PRN IV 03/31/25 12:45 Acetaminophen 650 mg Q6HP PRN PO 03/31/25 12:45 Morphine Sulfate 2 mg Q4HPRN PRN IV 03/31/25 12:45 Diagnostic Test (Pha) 1 strip ACHS 03/31/25 17:00 04/01/25 11:44 1 STRIP Insulin Human Regular ACHS SC 03/31/25 17:00 Dextrose 50 ml UD PRN IV 03/31/25 13:00 Atorvastatin Calcium 10 mg HS PO 03/31/25 22:00 03/31/25 21:59 10 MG Hydrochlorothiazide 25 mg DAILY PO 04/01/25 10:00 04/01/25 09:44 25 MG Amlodipine Besylate 5 mg DAILY PO 04/01/25 10:00 04/01/25 09:44 5 MG Pantoprazole Sodium 40 mg DAILY IV 04/01/25 10:00 04/01/25 09:44 40 MG Laboratory Results Laboratory Tests 04/01/25 06:18 Chemistry Test 03/31/25 12:26 04/01/25 06:18 Calcium Level 9.4 mg/dL (8.7-10.4) 9.7 mg/dL (8.7-10.4) Albumin 4.4 g/dL (3.2-4.8) Total Protein 7.7 g/dL (5.7-8.2) LFT Test 04/01/25 06:18 Alanine Aminotransferase (ALT) 29 U/L (7-40) Alkaline Phosphatase 108 U/L (46-116) Aspartate Amino Transferase (AST) 17 U/L (13-40) Total Bilirubin 0.7 mg/dL (0.2-1.0) HgA1c, TSH Test 03/31/25 12:26 Hemoglobin A1c 6.2 % A1C (<5.7) H Urinalysis Test 03/31/25 12:17 Urine Color Yellow (Yellow) Urine Clarity Turbid (Clear) H Urine pH 5.5 (5.0-9.0) Urine Specific [place] 1.034 (1.001-1.035) Urine Protein 1+ (Negative) H Urine Ketones Negative (Negative) Urine Blood Negative /uL (Negative) Urine Nitrite Negative (Negative) Urine Bilirubin Negative (Negative) Urine Urobilinogen Normal mg/dL (Negative) Urine Leukocyte Esterase Negative /uL (Negative) Urine RBC 4 /hpf (0 - 3) Urine Microscopic WBC 5 /HPF (0-3) H Urine Squamous Epithelial Cells Few /hpf (<5) Urine Calcium Oxalate Crystals Mod (None Seen) Urine Bacteria Few /hpf (None Seen) H Urine Hyaline Casts Mod /lpf (0 - 2) Urine Mucus Few (None Seen) Urine Glucose Normal mg/dL (Normal) Labs and/or images reviewed: Labs reviewed by me, Image(s) reviewed by me Assessment/Plan Assessment/Plan Intractable back pain likely due to Moderate to severe neural foraminal stenosis L3-4, L4-5 and L5-S1 consult for Dr. Rivera Zipr-vc-essxxtht lumbar degenerative disc disease Morbid obesity Diabetes type 2 Chronic back pain History of UTI History of osteomyelitis spine four years ago Plan discussed with: Patient Date of Service: April 01, 2025 Billing Provider: CORDELL JOHNSON MD Common Visit Codes: [id number] INP/OBS CARE(HIGH) CORDELL JOHNSON MD April 01, 2025 12:32
[2025-04-01] MEDS: LISINOPRIL 20 MG TAB PO SCH (12:55)
--- NOTE | 2025-04-01 13:34 | DVHINCON2 ---
Date Seen: April 01, 2025 Referring Physician Nikolay Reason for Consultation Pre-op Cardiac Assessment History of Present Illness 59-year-old male with PMH for HTN, prediabetes, osteomyelitis, spinal stenosis 4 years ago, cholelithiasis, morbid obesity presents to the hospital with worsening back pain x3 days. Patient admitted for further evaluation, MRI done shows significant neural foraminal stenosis at L4-L5 and L5-S1, no evidence of osteomyelitis. Cardiology consulted for preop cardiac assessment. Denies any active or recent chest pain, palpitations. Endorses does get short of breath walking up a few steps. Unable to walk more than a couple steps at a time due to severe back pain. Denies ever having any type of cardiac assessment/workup or seen a press setter in the past. EKG reviewed and shows normal sinus rhythm at 79 beats per minute with nonspecific T-wave abnormality. Past Medical History Prediabetes HTN HLD Morbid obesity Spinal osteomyelitis/stenosis Past Surgical History Denies previous cardiac surgeries Family History: FH: gallstones Hypertension G8 MOTHER Social History Denies alcohol, tobacco, or illicit drug use. Allergies: Coded Allergies: Amoxicillin (Verified Allergy, Unknown, 03/31/25) Uncoded Allergies: TRICICLINE (Allergy, Severe, 12/26/20) Home Meds No Active Prescriptions or Reported Meds Current Medications Current Medications Medications (Trade) Dose Ordered Sig/Gideon Route PRN Reason Start Time Stop Time Status Last Admin Diagnostic Test (Pha) (Accu-Chek Comfort Curve T) 1 strip ACHS 03/31/25 17:00 04/01/25 11:44 Insulin Human Regular (InsuLIN R) ACHS SC 03/31/25 17:00 Atorvastatin Calcium (Lipitor) 10 mg HS PO 03/31/25 22:00 03/31/25 21:59 Hydrochlorothiazide (hydroCHLOROthiazide TABLET) 25 mg DAILY PO 04/01/25 10:00 04/01/25 09:44 Amlodipine Besylate (Norvasc Tablet) 5 mg DAILY PO 04/01/25 10:00 04/01/25 09:44 Pantoprazole Sodium (Protonix) 40 mg DAILY IV 04/01/25 10:00 04/01/25 09:44 Lisinopril (Zestril Tablet) 40 mg DAILY PO 04/01/25 13:00 04/01/25 12:55 Review of Systems Constitutional: No: Fever, Chills, Sweats, Weakness, Malaise, Other Eyes: No: Pain, Vision change, Conjunctivae inflammation, Eyelid inflammation, Other, Redness ENT: No: Ear pain, Ear discharge, Nose pain, Nose discharge, Nose congestion, Mouth pain, Mouth swelling, Throat pain, Throat swelling, Other Respiratory: No: Cough, Dry, Shortness of breath, , Wheezing, Hemoptysis, Pleuritic Pain, Sputum, Wheezing, Other positive: SOB with exertion Cardiovascular: ; No: Chest Pain Palpitations, Orthopnea, Paroxysmal Noc. Dyspnea, Edema, Lt Headedness, Other Gastrointestinal: No: Nausea, Vomiting, Abdominal Pain, Diarrhea, Constipation, Melena, Hematochezia, Other Genitourinary: No Dysuria, No Frequency, No Incontinence, No Hematuria, No Retention, No Other Musculoskeletal: neck pain; No: other, shoulder pain, arm pain,, hand pain, leg pain, foot pain positive: back pain Skin: No: Rash, Lesions, Jaundice, Bruising, Other Neurological: Other (Dizziness, headache.); No: Weakness, Numbness, Incoordination, Change in speech, Confusion, Seizures Vital Signs Vital Signs Date Time Temp Pulse Resp B/P (MAP) Pulse Ox O2 Delivery O2 Flow Rate FiO2 04/01/25 12:55 172/94 04/01/25 09:00 97.8 74 20 92 97.8 03/31/25 15:02 Room Air* 0 21 Physical Exam General appearance: Obese, in no acute distress. HEENT: Exam shows: Normocephalic, atraumatic, PERRLA, EOMI Neck: Supple, no bruits Chest: Equal chest excursion bilaterally. Breath sounds diminished Heart: Rhythm: Regular rate; no murmur or gallop Abdomen: Exam shows: Soft, nontender, nondistended Musculoskeletal: No clubbing, no cyanosis, no lower extremity edema Dermatology: Skin warm, moist. Neurological: Exam shows: Alert and oriented x4, normal speech Available prior records, labs, EKG, rhythm strips reviewed and interpreted Labs/Diagnostic Data Labs Test 04/01/25 11:42 04/01/25 06:18 03/31/25 12:26 03/31/25 12:17 Range/Units POC Glucose 129 H 70-106 mg/dl White Blood Count 8.0 4.4-10.8 10^3/uL Red Blood Count 5.49 4.5-5.90 10^6/uL Hemoglobin 15.8 13.5-17.5 g/dL Hematocrit 46.1 41.0-53.0 % Mean Corpuscular Volume 84.0 80.0-100.0 fL Mean Corpuscular Hemoglobin 28.8 28.0-32.0 pg Mean Corpuscular Hemoglobin Concent 34.3 32.0-36.0 g/dL Red Cell Distribution Width 14.0 11.8-14.3 % Platelet Count 252 140-450 10^3/uL Mean Platelet Volume 8.7 6.9-10.8 fL Neutrophils (%) (Auto) 69.5 37.0-80.0 % Lymphocytes (%) (Auto) 18.9 10.0-50.0 % Monocytes (%) (Auto) 8.4 0.0-12.0 % Eosinophils (%) (Auto) 2.6 0.0-7.0 % Basophils (%) (Auto) 0.6 0.0-2.0 % Neutrophils # (Auto) 5.6 1.6-8.6 10 ^3/uL Lymphocytes # (Auto) 1.5 0.4-5.4 10 ^3/uL Monocytes # (Auto) 0.7 0-1.3 10 ^3/uL Eosinophils # (Auto) 0.2 0-0.8 10 ^3/uL Basophils # (Auto) 0 0-0.2 10 ^3/uL Nucleated Red Blood Cells 0.1 % Sodium Level 141 136-145 mmol/L Potassium Level 3.2 L 3.5-5.1 mmol/L Chloride Level 101 98-107 mmol/L Carbon Dioxide Level 29 20-31 mmol/L Anion Gap 11 5-15 Blood Urea Nitrogen 17 9-23 mg/dL Creatinine 0.73 0.700-1.30 mg/dL Glomerular Filtration Rate Calc 106 >90 mL/min BUN/Creatinine Ratio 23.3 H 10.0-20.0 Serum Glucose 126 H 74-106 mg/dL Calcium Level 9.7 8.7-10.4 mg/dL Total Bilirubin 0.7 0.2-1.0 mg/dL Aspartate Amino Transferase (AST) 17 13-40 U/L Alanine Aminotransferase (ALT) 29 7-40 U/L Alkaline Phosphatase 108 46-116 U/L Total Protein 7.7 5.7-8.2 g/dL Albumin 4.4 3.2-4.8 g/dL Hemoglobin A1c 6.2 H <5.7 % A1C Lactic Acid Level 1.6 0.4-2.0 mmol/L C-Reactive Protein High Sensitivity 0.93 <1.0 mg/dL Urine Color Yellow Yellow Urine Clarity Turbid H Clear Urine pH 5.5 5.0-9.0 Urine Specific [place] 1.034 1.001-1.035 Urine Protein 1+ H Negative Urine Ketones Negative Negative Urine Blood Negative Negative /uL Urine Nitrite Negative Negative Urine Bilirubin Negative Negative Urine Urobilinogen Normal Negative mg/dL Urine Leukocyte Esterase Negative Negative /uL Urine RBC 4 0 - 3 /hpf Urine Microscopic WBC 5 H 0-3 /HPF Urine Squamous Epithelial Cells Few <5 /hpf Urine Calcium Oxalate Crystals Mod None Seen Urine Bacteria Few H None Seen /hpf Urine Hyaline Casts Mod 0 - 2 /lpf Urine Mucus Few None Seen Urine Glucose Normal Normal mg/dL Assessment * Pre-op Cardiac Assessment - Patient is requiring spine surgery due to stenosis. ECG on admission showed normal sinus rhythm at 79 beats per minute, nonspecific T-wave abnormality. Shortness of breath with exertion, unable to determine Mets due to limited mobility with spine stenosis. Check echo. Due to comorbidities, unable to determine Mets, recommend stress test, plan for Thursday. * Spinal stenosis -spine ortho on board, plan surgery Thursday. * Uncontrolled HTN - patient resumed on home medication, continue trending. Titrate as tolerated. * Morbid obesity - lifestyle modifications with diet, physical activity as tolerated. * HX HLD - on statin. Case Discussed with Dr Alexander. Follow up echo. Denies any cardiac history, no previous cardiac workup with stress test/angiogram. Denies chest pain. Does state he gets short of breath walking up a couple stairs. Due to comorbidities, unable to tolerate/assess METs, plan for stress test Thursday a.m.. Critical care, time spent: 48 minutes This medical document was created using an electronic medical record system with voice recognition software and computerized dictation system. Although this document has been carefully reviewed, there might still be some phonetic and typographical errors. Occasional wrong-word or ``sound-alike substitutions may have occurred due to the inherent limitations of voice recognition software. These areas are purely typographical due to imperfections of the software programs and do not reflect any compromise in the patient's medical care. Please read the chart carefully and recognize, using context, where these substitutions have occurred. Thank you for allowing me to participate in the management of this patient. The treatment plan was discussed with and agreed upon by patient/family including requesting consultants and ordering of imaging/procedures. Plan discussed with: Patient NYHA Physical activity limitations: Class2(Slight)fatigue,sob Date of Service: April 01, 2025 Billing Provider: ANGÉLICA ALTMAN Cardiology Common Codes: [id number] INP/OBS CARE (High), [id number] CARE 30-74 MIN ANGÉLICA ALTMAN April 01, 2025 13:34
--- NOTE | 2025-04-01 17:41 | DVHSR ---
APPROVED REPORT EXAM: LIMITED Two-dimensional and M-mode echocardiogram. Blood Pressure: 172/94 mmHg INDICATION Pre-Op RISK FACTORS Obesity: Height: 5' 8", Weight: 286 DIMENSIONS LVDd4.9 (3.8-5.7cm)LA (2D)4.2 (1.9-4.0cm)Aortic Root (2.0-3.7cm) LVDs3.8 (2.5-4.0cm)LA (MM) (1.9-4.0cm)Aortic Cusp Exc (1.5-2.0cm) EF (%) 45.0 (55-70%)Rt. Atrium5.2 (1.9-4.0cm)Asc. Aorta cm IVSd1.2 (0.7-1.1cm)RV (D) (1.8-2.4cm) PWd1.4 (0.7-1.1cm) Mitral Valve MitralMitral Stenosis E wave0.90m/sMV Mean GR.mmHg A wave0.90m/sMV Peak GR.mmHg E/A ratio1.02D MVAcm2 Aortic Valve Aortic ValveAortic Stenosis V10.90m/Ye Mean GR.9mmHg V22.00m/Ye Peak GR.16mmHg Other Information Quality : Technically LimitedRhythm : Technically limited study due to body habitus. Conclusion MILD LVH AND MILD LV DIASTOLIC DYSFUNCTION LV EF IS 50% AND IS LOW NORMAL MILD DYSKINESIS OF IVS RV AND RA ARE SLIGHTLY DILATED IT IS CHRONIC RV STRAIN PATTERN NORMAL VALVES NO EFFUSION RVSP NOT AVAILABLE
--- NOTE | 2025-04-01 23:31 | DVHINCON2 ---
Date Seen: April 01, 2025 Referring Physician Nikolay Reason for Consultation Pre-op Cardiac Assessment History of Present Illness This is a 59-year-old male with a PMH of HTN, prediabetes, osteomyelitis, spinal stenosis 4 years ago, cholelithiasis, morbid obesity presents to the ED with complaints of worsening back pain x3 days. Patient endorses he does get short of breath walking up a few steps. Patient is unable to walk more than a couple steps at a time due to severe back pain. Patient was admitted for further evaluation, MRI L-spine shows significant neural foraminal stenosis at L4-L5 and L5-S1, no evidence of osteomyelitis. K 3.2, HGB A1C 6.2. Cardiology consulted for preop cardiac assessment. Denies any active or recent chest pain, palpitations. Denies ever having any type of cardiac assessment/workup or seen a steward dishwasher in the past. EKG was reviewed which showed normal sinus rhythm at 79 beats per minute with nonspecific T-wave abnormality. Past Medical History Prediabetes HTN HLD Morbid obesity Spinal osteomyelitis/stenosis Past Surgical History Denies previous cardiac surgeries Family History: FH: gallstones Hypertension G8 MOTHER Allergies: Coded Allergies: Amoxicillin (Verified Allergy, Unknown, 03/31/25) Uncoded Allergies: TRICICLINE (Allergy, Severe, 12/26/20) Home Meds No Active Prescriptions or Reported Meds Current Medications Current Medications Medications (Trade) Dose Ordered Sig/Gideon Route PRN Reason Start Time Stop Time Status Last Admin Diagnostic Test (Pha) (Accu-Chek Comfort Curve T) 1 strip ACHS 03/31/25 17:00 04/01/25 11:44 Insulin Human Regular (InsuLIN R) ACHS SC 03/31/25 17:00 Atorvastatin Calcium (Lipitor) 10 mg HS PO 03/31/25 22:00 03/31/25 21:59 Hydrochlorothiazide (hydroCHLOROthiazide TABLET) 25 mg DAILY PO 04/01/25 10:00 04/01/25 09:44 Amlodipine Besylate (Norvasc Tablet) 5 mg DAILY PO 04/01/25 10:00 04/01/25 09:44 Pantoprazole Sodium (Protonix) 40 mg DAILY IV 04/01/25 10:00 04/01/25 09:44 Lisinopril (Zestril Tablet) 40 mg DAILY PO 04/01/25 13:00 04/01/25 12:55 Review of Systems Constitutional: No: Fever, Chills, Sweats, Weakness, Malaise, Other Eyes: No: Pain, Vision change, Conjunctivae inflammation, Eyelid inflammation, Other, Redness ENT: No: Ear pain, Ear discharge, Nose pain, Nose discharge, Nose congestion, Mouth pain, Mouth swelling, Throat pain, Throat swelling, Other Respiratory: No: Cough, Dry, Shortness of breath, , Wheezing, Hemoptysis, Pleuritic Pain, Sputum, Wheezing, Other positive: SOB with exertion Cardiovascular: ; No: Chest Pain Palpitations, Orthopnea, Paroxysmal Noc. Dyspnea, Edema, Lt Headedness, Other Gastrointestinal: No: Nausea, Vomiting, Abdominal Pain, Diarrhea, Constipation, Melena, Hematochezia, Other Genitourinary: No Dysuria, No Frequency, No Incontinence, No Hematuria, No Retention, No Other Musculoskeletal: neck pain; No: other, shoulder pain, arm pain,, hand pain, leg pain, foot pain positive: back pain Skin: No: Rash, Lesions, Jaundice, Bruising, Other Neurological: Other (Dizziness, headache.); No: Weakness, Numbness, Incoordination, Change in speech, Confusion, Seizures Vital Signs Vital Signs Date Time Temp Pulse Resp B/P (MAP) Pulse Ox O2 Delivery O2 Flow Rate FiO2 04/01/25 12:55 172/94 04/01/25 09:00 97.8 74 20 92 97.8 03/31/25 15:02 Room Air* 0 21 Physical Exam GENERAL: Alert and oriented x 3. No acute distress. EYES: PERRL, EOMI. Anicteric. HENT: Moist mucous membranes. LUNGS: Diminished breath sounds. CARDIOVASCULAR: Regular rate and rhythm. ABDOMEN: Soft, nontender and nondistended. EXTREMITIES: No edema. NEUROLOGIC: No focal neurological deficits. SKIN: Warm, dry. Labs/Diagnostic Data Labs Test 04/01/25 11:42 04/01/25 06:18 03/31/25 12:26 03/31/25 12:17 Range/Units POC Glucose 129 H 70-106 mg/dl White Blood Count 8.0 4.4-10.8 10^3/uL Red Blood Count 5.49 4.5-5.90 10^6/uL Hemoglobin 15.8 13.5-17.5 g/dL Hematocrit 46.1 41.0-53.0 % Mean Corpuscular Volume 84.0 80.0-100.0 fL Mean Corpuscular Hemoglobin 28.8 28.0-32.0 pg Mean Corpuscular Hemoglobin Concent 34.3 32.0-36.0 g/dL Red Cell Distribution Width 14.0 11.8-14.3 % Platelet Count 252 140-450 10^3/uL Mean Platelet Volume 8.7 6.9-10.8 fL Neutrophils (%) (Auto) 69.5 37.0-80.0 % Lymphocytes (%) (Auto) 18.9 10.0-50.0 % Monocytes (%) (Auto) 8.4 0.0-12.0 % Eosinophils (%) (Auto) 2.6 0.0-7.0 % Basophils (%) (Auto) 0.6 0.0-2.0 % Neutrophils # (Auto) 5.6 1.6-8.6 10 ^3/uL Lymphocytes # (Auto) 1.5 0.4-5.4 10 ^3/uL Monocytes # (Auto) 0.7 0-1.3 10 ^3/uL Eosinophils # (Auto) 0.2 0-0.8 10 ^3/uL Basophils # (Auto) 0 0-0.2 10 ^3/uL Nucleated Red Blood Cells 0.1 % Sodium Level 141 136-145 mmol/L Potassium Level 3.2 L 3.5-5.1 mmol/L Chloride Level 101 98-107 mmol/L Carbon Dioxide Level 29 20-31 mmol/L Anion Gap 11 5-15 Blood Urea Nitrogen 17 9-23 mg/dL Creatinine 0.73 0.700-1.30 mg/dL Glomerular Filtration Rate Calc 106 >90 mL/min BUN/Creatinine Ratio 23.3 H 10.0-20.0 Serum Glucose 126 H 74-106 mg/dL Calcium Level 9.7 8.7-10.4 mg/dL Total Bilirubin 0.7 0.2-1.0 mg/dL Aspartate Amino Transferase (AST) 17 13-40 U/L Alanine Aminotransferase (ALT) 29 7-40 U/L Alkaline Phosphatase 108 46-116 U/L Total Protein 7.7 5.7-8.2 g/dL Albumin 4.4 3.2-4.8 g/dL Hemoglobin A1c 6.2 H <5.7 % A1C Lactic Acid Level 1.6 0.4-2.0 mmol/L C-Reactive Protein High Sensitivity 0.93 <1.0 mg/dL Urine Color Yellow Yellow Urine Clarity Turbid H Clear Urine pH 5.5 5.0-9.0 Urine Specific [place] 1.034 1.001-1.035 Urine Protein 1+ H Negative Urine Ketones Negative Negative Urine Blood Negative Negative /uL Urine Nitrite Negative Negative Urine Bilirubin Negative Negative Urine Urobilinogen Normal Negative mg/dL Urine Leukocyte Esterase Negative Negative /uL Urine RBC 4 0 - 3 /hpf Urine Microscopic WBC 5 H 0-3 /HPF Urine Squamous Epithelial Cells Few <5 /hpf Urine Calcium Oxalate Crystals Mod None Seen Urine Bacteria Few H None Seen /hpf Urine Hyaline Casts Mod 0 - 2 /lpf Urine Mucus Few None Seen Urine Glucose Normal Normal mg/dL Assessment Pre-op Cardiac Assessment. Spinal stenosis. Uncontrolled HTN. Morbid obesity. HLD. Plan/Recommendation I agree with your ongoing assessment and care of plan. Patient has been seen by Joel Lindsay NP on my behalf, him and I discussed the plan with the patient. Patient is requiring spine surgery due to stenosis. ECG on admission showed normal sinus rhythm at 79 beats per minute, nonspecific T-wave abnormality. Shortness of breath with exertion, unable to determine Mets due to limited mobility with spine stenosis. Due to comorbidities, unable to determine Mets, recommend stress test, plan for Thursday. Check echo. Resumed on home medication, continue trending. Titrate as tolerated. Lifestyle modifications with diet, physical activity as tolerated. Continue Statin. Additional plan as per the hospital course. Plan discussed with: Patient NYHA Physical activity limitations: Class2(Slight)fatigue,sob Date of Service: April 01, 2025 Billing Provider: JANICE BRANCH MD Cardiology Common Codes: [id number] INP/OBS CARE (High) JANICE BRANCH MD April 01, 2025 13:36
[2025-04-02] VITALS (7 sets, daily range): BP systolic 112–147; BP diastolic 62–86; PULSE 56–82; RESP 16–22; TEMP 95.6–98.3; O2SAT 91–98
--- NOTE | 2025-04-02 09:17 | DVHPN2 ---
Reviewed: Care Plan, H&P, Labs, Medications, Previous Orders, Radiology Changes from previous H/P or p: No Changes Musculoskeletal: back pain, leg pain Objective Vitals Vital Signs Date Time Temp Pulse Resp B/P (MAP) Pulse Ox O2 Delivery O2 Flow Rate FiO2 04/02/25 01:00 95.6 63 18 139/78 (98) 93 95.6 04/01/25 20:00 Room Air* 0 21 Intake/Output Intake and Output 04/02/25 07:00 Intake Total 1680 ml Balance 1680 ml Intake Oral 1680 ml # Voids 4 # Bowel Movements 1 Medications Current Medications Medications Dose Ordered Sig/Gideon Route Start Time Stop Time Status Last Admin Dose Admin Acetaminophen/ Hydrocodone Bitart 1 tab Q4HP PRN PO 03/31/25 12:45 04/01/25 22:13 1 TAB Ondansetron HCl 4 mg Q4HP PRN IV 03/31/25 12:45 Acetaminophen 650 mg Q6HP PRN PO 03/31/25 12:45 Morphine Sulfate 2 mg Q4HPRN PRN IV 03/31/25 12:45 Diagnostic Test (Pha) 1 strip ACHS 03/31/25 17:00 04/02/25 06:35 1 STRIP Insulin Human Regular ACHS SC 03/31/25 17:00 Dextrose 50 ml UD PRN IV 03/31/25 13:00 Atorvastatin Calcium 10 mg HS PO 03/31/25 22:00 04/01/25 21:04 10 MG Hydrochlorothiazide 25 mg DAILY PO 04/01/25 10:00 04/01/25 09:44 25 MG Amlodipine Besylate 5 mg DAILY PO 04/01/25 10:00 04/01/25 09:44 5 MG Pantoprazole Sodium 40 mg DAILY IV 04/01/25 10:00 04/01/25 09:44 40 MG Lisinopril 40 mg DAILY PO 04/01/25 13:00 04/01/25 12:55 40 MG Laboratory Results Laboratory Tests 04/01/25 06:18 Urinalysis Test 03/31/25 12:17 Urine Color Yellow (Yellow) Urine Clarity Turbid (Clear) H Urine pH 5.5 (5.0-9.0) Urine Specific [place] 1.034 (1.001-1.035) Urine Protein 1+ (Negative) H Urine Ketones Negative (Negative) Urine Blood Negative /uL (Negative) Urine Nitrite Negative (Negative) Urine Bilirubin Negative (Negative) Urine Urobilinogen Normal mg/dL (Negative) Urine Leukocyte Esterase Negative /uL (Negative) Urine RBC 4 /hpf (0 - 3) Urine Microscopic WBC 5 /HPF (0-3) H Urine Squamous Epithelial Cells Few /hpf (<5) Urine Calcium Oxalate Crystals Mod (None Seen) Urine Bacteria Few /hpf (None Seen) H Urine Hyaline Casts Mod /lpf (0 - 2) Urine Mucus Few (None Seen) Urine Glucose Normal mg/dL (Normal) Labs and/or images reviewed: Labs reviewed by me, Image(s) reviewed by me Assessment/Plan Assessment/Plan Intractable back pain likely due to Moderate to severe neural foraminal stenosis L3-4, L4-5 and L5-S1 consult for Dr. Rivera who is planning for surgery on Thursday [id number] lumbar degenerative disc disease Morbid obesity Diabetes type 2 Chronic back pain History of UTI History of osteomyelitis spine four years ago Cardiac clearance by Dr. Alexander, scheduled for stress test Thursday morning Plan discussed with: Patient My Orders Orders - CORDELL JOHNSON MD Procedure Category Date Status Time Consultdr. Deangelo CONS 04/01/25 Transmitted [place](Spine) 12:06 * Cardiology Consult CONS 04/01/25 Transmitted 12:43 Lisinopril Tablet PHA 04/01/25 In Process (Zestril Tablet) 13:00 Date of Service: April 02, 2025 Billing Provider: CORDELL JOHNSON MD Common Visit Codes: [id number] INP/OBS CARE(HIGH) CORDELL JOHNSON MD April 02, 2025 09:17
--- NOTE | 2025-04-02 09:45 | DVHPN2 ---
Consult Progress Note Subjective Patient reports: No new complaints Objective vital signs Vital Sign Date Time Temp Pulse Resp B/P (MAP) Pulse Ox O2 Delivery O2 Flow Rate FiO2 04/02/25 09:00 98.3 81 22 147/86 (106) 98 98.3 04/01/25 20:00 Room Air* 0 21 Total Intake and Output 04/01/25 04/01/25 04/02/25 15:00 23:00 07:00 Intake Total 880 ml 800 ml Balance 880 ml 800 ml medications Current Medications Medications Dose Ordered Sig/Gideon Route Start Time Stop Time Status Last Admin Dose Admin Acetaminophen/ Hydrocodone Bitart 1 tab Q4HP PRN PO 03/31/25 12:45 04/01/25 22:13 1 TAB Ondansetron HCl 4 mg Q4HP PRN IV 03/31/25 12:45 Acetaminophen 650 mg Q6HP PRN PO 03/31/25 12:45 Morphine Sulfate 2 mg Q4HPRN PRN IV 03/31/25 12:45 Diagnostic Test (Pha) 1 strip ACHS 03/31/25 17:00 04/02/25 06:35 1 STRIP Insulin Human Regular ACHS SC 03/31/25 17:00 Dextrose 50 ml UD PRN IV 03/31/25 13:00 Atorvastatin Calcium 10 mg HS PO 03/31/25 22:00 04/01/25 21:04 10 MG Hydrochlorothiazide 25 mg DAILY PO 04/01/25 10:00 04/01/25 09:44 25 MG Amlodipine Besylate 5 mg DAILY PO 04/01/25 10:00 04/01/25 09:44 5 MG Pantoprazole Sodium 40 mg DAILY IV 04/01/25 10:00 04/01/25 09:44 40 MG Lisinopril 40 mg DAILY PO 04/01/25 13:00 04/01/25 12:55 40 MG Examination: CVS:Normal (Telemetry reviewed consistent with normal sinus rhythm at 77 beats per minute.) laboratory and microbiology Laboratory Tests 04/01/25 06:18 Test 04/01/25 06:18 Range/Units Serum Glucose 126 H 74-106 mg/dL Problem List/Assessment/Plan Problem List/Assessment/Plan Assessment * Pre-op Cardiac Assessment - Patient is requiring spine surgery due to stenosis. ECG on admission showed normal sinus rhythm at 79 beats per minute, nonspecific T-wave abnormality. Shortness of breath with exertion, unable to determine Mets due to limited mobility with spine stenosis. Echo with low normal EF of 50%. Due to comorbidities, unable to determine Mets, recommend stress test, plan for Thursday. * Spinal stenosis -spine ortho on board, plan surgery Thursday. * Uncontrolled HTN - patient resumed on home medication, continue trending. Titrate as tolerated. * Morbid obesity - lifestyle modifications with diet, physical activity as tolerated. * HX HLD - on statin. Case Discussed with Dr Alexander. Low normal EF on echo at 50%, mild dyskinesis of IBS, RV and RA slightly dilated chronic RV strain pattern. Denies any cardiac history, no previous cardiac workup with stress test/angiogram. Denies chest pain. Does state he gets short of breath walking up a couple stairs. Due to comorbidities, unable to tolerate/assess METs, plan for stress test Thursday a.m.. This medical document was created using an electronic medical record system with voice recognition software and computerized dictation system. Although this document has been carefully reviewed, there might still be some phonetic and typographical errors. Occasional wrong-word or ``sound-alike substitutions may have occurred due to the inherent limitations of voice recognition software. These areas are purely typographical due to imperfections of the software programs and do not reflect any compromise in the patient's medical care. Please read the chart carefully and recognize, using context, where these substitutions have occurred. Thank you for allowing me to participate in the management of this patient. The treatment plan was discussed with and agreed upon by patient/family including requesting consultants and ordering of imaging/procedures. Plan discussed with: Patient Date of Service: April 02, 2025 Billing Provider: ANGÉLICA ALTMAN Common Visit Codes: [id number] INP/OBS CARE(HIGH) ANGÉLICA ALTMAN April 02, 2025 09:45
--- NOTE | 2025-04-02 21:20 | DVHPN2 ---
Consult Progress Note Subjective Patient reports: No new complaints Other Systems: Patient was seen and evaluated in follow up. Patient is complaining of back pain. CBC and CMP are unremarakble. Planned for stress test Thursday. Objective vital signs Vital Sign Date Time Temp Pulse Resp B/P (MAP) Pulse Ox O2 Delivery O2 Flow Rate FiO2 04/02/25 09:44 147/86 04/02/25 09:00 98.3 81 22 98 98.3 04/02/25 08:00 Room Air* 0 21 Total Intake and Output 04/01/25 04/01/25 04/02/25 15:00 23:00 07:00 Intake Total 880 ml 800 ml Balance 880 ml 800 ml medications Current Medications Medications Dose Ordered Sig/Gideon Route Start Time Stop Time Status Last Admin Dose Admin Acetaminophen/ Hydrocodone Bitart 1 tab Q4HP PRN PO 03/31/25 12:45 04/02/25 09:58 1 TAB Ondansetron HCl 4 mg Q4HP PRN IV 03/31/25 12:45 Acetaminophen 650 mg Q6HP PRN PO 03/31/25 12:45 Morphine Sulfate 2 mg Q4HPRN PRN IV 03/31/25 12:45 Diagnostic Test (Pha) 1 strip ACHS 03/31/25 17:00 04/02/25 11:30 1 STRIP Insulin Human Regular ACHS SC 03/31/25 17:00 04/02/25 11:30 2 UNITS Dextrose 50 ml UD PRN IV 03/31/25 13:00 Atorvastatin Calcium 10 mg HS PO 03/31/25 22:00 04/01/25 21:04 10 MG Hydrochlorothiazide 25 mg DAILY PO 04/01/25 10:00 04/02/25 09:43 25 MG Amlodipine Besylate 5 mg DAILY PO 04/01/25 10:00 04/02/25 09:44 5 MG Pantoprazole Sodium 40 mg DAILY IV 04/01/25 10:00 04/02/25 09:43 40 MG Lisinopril 40 mg DAILY PO 04/01/25 13:00 04/02/25 09:44 40 MG Examination: GENERAL:Normal, HEENT:Normal, NECK:Normal, LUNGS:Normal, CVS:Normal, ABDOMEN:Normal, MSK:Normal, SKIN:Normal laboratory and microbiology Laboratory Tests 04/01/25 06:18 Test 04/01/25 06:18 Range/Units Serum Glucose 126 H 74-106 mg/dL Problem List/Assessment/Plan Problem List/Assessment/Plan Assessment Pre-op Cardiac Assessment. Spinal stenosis. Uncontrolled HTN. Morbid obesity. HLD. Plan/Recommendation Continued all current supportive medical care. Patient has been seen by Joel Lindsay NP on my behalf, him and I discussed the plan with the patient. Low normal EF on echo at 50%, mild dyskinesis of IBS, RV and RA slightly dilated chronic RV strain pattern. Denies any cardiac history, no previous cardiac workup with stress test/angiogram. Denies chest pain. Does state he gets short of breath walking up a couple stairs. Due to comorbidities, unable to tolerate/assess METs, plan for stress test Thursday a.m.. Patient is requiring spine surgery due to stenosis. ECG on admission showed normal sinus rhythm at 79 beats per minute, nonspecific T-wave abnormality. Shortness of breath with exertion, unable to determine Mets due to limited mobility with spine stenosis. Due to comorbidities, unable to determine Mets, recommend stress test, plan for Thursday. Check echo. Resumed on home medication, continue trending. Titrate as tolerated. Lifestyle modifications with diet, physical activity as tolerated. Continue Statin. Additional plan as per the hospital course. Plan discussed with: Patient Date of Service: April 02, 2025 Billing Provider: JANICE BRANCH MD Cardiology Common Codes: [id number] INP/OBS CARE (High) JANICE BRANCH MD April 02, 2025 14:05
[2025-04-03] VITALS (8 sets, daily range): BP systolic 118–153; BP diastolic 62–75; PULSE 62–83; RESP 16–19; TEMP 97.3–98.6; O2SAT 94–97
--- NOTE | 2025-04-03 06:51 | DVHINCON2 ---
Consultation - Spinal Surgery Date Seen: March 31, 2025 Referring Physician Referring Physician Reason for Consultation intractable low back pain and neurogenic claudication making patient unable to ambulate History of Present Illness History of Present Illness pleasant man with long history of low back pain an sciatica including a history of an infection in the back who presents with increasing low back pain radiating down both legs to the feet to the level that he is unable to ambulate severe parasthesias in the buttocks, thighs, legs and feet increasing numbness in the legs and increasing balance trouble no bowel or bladder incontinence he is having severe balance trouble no prior spine surgery Allergies and medications Allergies: Coded Allergies: Amoxicillin (Verified Allergy, Unknown, 03/31/25) Uncoded Allergies: TRICICLINE (Allergy, Severe, 12/26/20) Home Meds No Active Prescriptions or Reported Meds Review of systems Review of Systems: HEENT:Normal, CVS:Normal, RESPIRATORY:Normal, GI:Normal, :Normal, MSK:Abnormal, NEURO:Abnormal Examination Vital signs Vital Signs Date Time Temp Pulse Resp B/P (MAP) Pulse Ox O2 Delivery O2 Flow Rate FiO2 04/03/25 05:00 97.8 64 18 139/64 (89) 94 97.8 04/02/25 20:00 Room Air* 0 21 Laboratory PATIENT: GAB FLORES ACCT: [id number] UNIT: [id number] : 1965 LOC: OVERFLOW ROOM / BED: [address] [place] [address] / AGE / SEX: 59 / M ADM STATUS: ADM IN SERVICE 1211 ORDERING PHYSICIAN: LJ AZEVEDO PROCEDURE(s): MSLW - LUMBAR SPINE WO W CONTRST REASON: ORDER NUMBER(s): [id number], ACCESSION NUMBER(s): [id number] PROCEDURE: MRI LUMBAR SPINE WO W CONTRST INDICATION: LOW BACK PAIN, HX OF OSTEOMYELITIS Exam Date: 03/31/2025 01:35 PM COMPARISON: LUMBAR SPINE WO W CONTRST on DOS: 12/27/20 TECHNIQUE: MRI lumbar spine with and without 15 mL Gadavist gadolinium IV contrast. FINDINGS: No fracture or listhesis of the lumbar spine. The conus terminates at L1. No abnormal postcontrast enhancement is identified throughout the visualized bony structures. L1-L2: There is a circumferential broad disc bulge with endplate hypertrophy, most prominent anteriorly. There is mild bilateral facet hypertrophy. No significant spinal canal stenosis or neural foraminal stenosis bilaterally. L2-L3: There is a mild circumferential broad disc bulge. There is bilateral facet and ligamentum flavum hypertrophy. No significant spinal canal stenosis. There is mild bilateral neural foraminal stenosis. L3-L4: There is a circumferential broad disc bulge with endplate hypertrophy, most prominent anteriorly. There is bilateral facet and left ligamentum flavum hypertrophy. No significant spinal canal stenosis. There is mild bilateral neural foraminal stenosis. L4-L5: There is disc desiccation without loss of disc height. There is a minimal circumferential broad disc bulge. There may be a left foraminal disc annulus tear. There is bilateral facet hypertrophy, greater on the right. No significant spinal canal stenosis. There is mild right and moderate left neural foraminal stenosis. L5-S1: There is disc desiccation with slight loss of disc height. There is a broad posterior disc herniation with disc annulus tear, measuring 4.5 mm AP in the midline (image 8, series 5 and 12). There is mild bilateral facet hypertrophy. The AP dimension of the spinal canal measures 9 mm. There is m oderate right and mild left neural foraminal stenosis. IMPRESSION: 1. No fracture of the lumbar spine. 2. Degenerative disc disease and facet arthropathy with significant neural foraminal stenosis at L4-L5 on the left and L5-S1 on the right. These findings May correspond to lower extremity radicular symptoms in the left L4 and right L5 nerve root distributions. 3. Mild spinal canal stenosis L4-L5. 4. No evidence of osteomyelitis or discitis about the lumbar spine. ATED BY: RENNY GOLD MD DICTATED DATE/TIME: 03/31/25 143 SIGNED BY: RENNY GOLD MD SIGNED DATE/TIME: 03/31/25 1435 CC: Labs Test 04/03/25 06:05 04/01/25 14:07 04/01/25 06:18 03/31/25 12:26 Range/Units POC Glucose 123 H 70-106 mg/dl Troponin I High Sensitivity 39 </=54 ng/L White Blood Count 8.0 4.4-10.8 10^3/uL Red Blood Count 5.49 4.5-5.90 10^6/uL Hemoglobin 15.8 13.5-17.5 g/dL Hematocrit 46.1 41.0-53.0 % Mean Corpuscular Volume 84.0 80.0-100.0 fL Mean Corpuscular Hemoglobin 28.8 28.0-32.0 pg Mean Corpuscular Hemoglobin Concent 34.3 32.0-36.0 g/dL Red Cell Distribution Width 14.0 11.8-14.3 % Platelet Count 252 140-450 10^3/uL Mean Platelet Volume 8.7 6.9-10.8 fL Neutrophils (%) (Auto) 69.5 37.0-80.0 % Lymphocytes (%) (Auto) 18.9 10.0-50.0 % Monocytes (%) (Auto) 8.4 0.0-12.0 % Eosinophils (%) (Auto) 2.6 0.0-7.0 % Basophils (%) (Auto) 0.6 0.0-2.0 % Neutrophils # (Auto) 5.6 1.6-8.6 10 ^3/uL Lymphocytes # (Auto) 1.5 0.4-5.4 10 ^3/uL Monocytes # (Auto) 0.7 0-1.3 10 ^3/uL Eosinophils # (Auto) 0.2 0-0.8 10 ^3/uL Basophils # (Auto) 0 0-0.2 10 ^3/uL Nucleated Red Blood Cells 0.1 % Sodium Level 141 136-145 mmol/L Potassium Level 3.2 L 3.5-5.1 mmol/L Chloride Level 101 98-107 mmol/L Carbon Dioxide Level 29 20-31 mmol/L Anion Gap 11 5-15 Blood Urea Nitrogen 17 9-23 mg/dL Creatinine 0.73 0.700-1.30 mg/dL Glomerular Filtration Rate Calc 106 >90 mL/min BUN/Creatinine Ratio 23.3 H 10.0-20.0 Serum Glucose 126 H 74-106 mg/dL Calcium Level 9.7 8.7-10.4 mg/dL Total Bilirubin 0.7 0.2-1.0 mg/dL Aspartate Amino Transferase (AST) 17 13-40 U/L Alanine Aminotransferase (ALT) 29 7-40 U/L Alkaline Phosphatase 108 46-116 U/L Total Protein 7.7 5.7-8.2 g/dL Albumin 4.4 3.2-4.8 g/dL Hemoglobin A1c 6.2 H <5.7 % A1C Lactic Acid Level 1.6 0.4-2.0 mmol/L C-Reactive Protein High Sensitivity 0.93 <1.0 mg/dL Test 03/31/25 12:17 Range/Units Urine Color Yellow Yellow Urine Clarity Turbid H Clear Urine pH 5.5 5.0-9.0 Urine Specific [place] 1.034 1.001-1.035 Urine Protein 1+ H Negative Urine Ketones Negative Negative Urine Blood Negative Negative /uL Urine Nitrite Negative Negative Urine Bilirubin Negative Negative Urine Urobilinogen Normal Negative mg/dL Urine Leukocyte Esterase Negative Negative /uL Urine RBC 4 0 - 3 /hpf Urine Microscopic WBC 5 H 0-3 /HPF Urine Squamous Epithelial Cells Few <5 /hpf Urine Calcium Oxalate Crystals Mod None Seen Urine Bacteria Few H None Seen /hpf Urine Hyaline Casts Mod 0 - 2 /lpf Urine Mucus Few None Seen Urine Glucose Normal Normal mg/dL Examination: GENERAL:Abnormal, NECK:Normal, LUNGS:Normal, CVS:Normal, ABDOMEN:Normal, MSK:Abnormal, NEURO:Abnormal, :Normal Problem List/Assessment/Plan Problems: (1) Lumbar spine pain (2) Lumbar radiculopathy, acute Assessment and Plan 1. 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 Luna was informed and he will arrange for the clearance. Plan discussed with Plan discussed with: Patient, Spouse ROZ MCGRAW MD April 03, 2025 06:50
--- NOTE | 2025-04-03 08:31 | DVHPN2 ---
Reviewed: Care Plan, H&P, Labs, Medications, Previous Orders, Radiology Changes from previous H/P or p: No Changes Musculoskeletal: back pain, leg pain Objective Vitals Vital Signs Date Time Temp Pulse Resp B/P (MAP) Pulse Ox O2 Delivery O2 Flow Rate FiO2 04/03/25 05:00 97.8 64 18 139/64 (89) 94 97.8 04/02/25 20:00 Room Air* 0 21 Intake/Output Intake and Output 04/03/25 07:00 Intake Total 1280 ml Output Total 2250 ml Balance -970 ml Intake Oral 1280 ml Output Urine Total 2250 ml Medications Current Medications Medications Dose Ordered Sig/Gideon Route Start Time Stop Time Status Last Admin Dose Admin Acetaminophen/ Hydrocodone Bitart 1 tab Q4HP PRN PO 03/31/25 12:45 04/02/25 22:12 1 TAB Ondansetron HCl 4 mg Q4HP PRN IV 03/31/25 12:45 Acetaminophen 650 mg Q6HP PRN PO 03/31/25 12:45 Morphine Sulfate 2 mg Q4HPRN PRN IV 03/31/25 12:45 Diagnostic Test (Pha) 1 strip ACHS 03/31/25 17:00 04/03/25 06:35 1 STRIP Insulin Human Regular ACHS SC 03/31/25 17:00 04/02/25 22:17 2 UNITS Dextrose 50 ml UD PRN IV 03/31/25 13:00 Atorvastatin Calcium 10 mg HS PO 03/31/25 22:00 04/02/25 22:11 10 MG Hydrochlorothiazide 25 mg DAILY PO 04/01/25 10:00 04/02/25 09:43 25 MG Amlodipine Besylate 5 mg DAILY PO 04/01/25 10:00 04/02/25 09:44 5 MG Pantoprazole Sodium 40 mg DAILY IV 04/01/25 10:00 04/02/25 09:43 40 MG Lisinopril 40 mg DAILY PO 04/01/25 13:00 04/02/25 09:44 40 MG Laboratory Results Laboratory Tests 04/01/25 06:18 Urinalysis Test 03/31/25 12:17 Urine Color Yellow (Yellow) Urine Clarity Turbid (Clear) H Urine pH 5.5 (5.0-9.0) Urine Specific [place] 1.034 (1.001-1.035) Urine Protein 1+ (Negative) H Urine Ketones Negative (Negative) Urine Blood Negative /uL (Negative) Urine Nitrite Negative (Negative) Urine Bilirubin Negative (Negative) Urine Urobilinogen Normal mg/dL (Negative) Urine Leukocyte Esterase Negative /uL (Negative) Urine RBC 4 /hpf (0 - 3) Urine Microscopic WBC 5 /HPF (0-3) H Urine Squamous Epithelial Cells Few /hpf (<5) Urine Calcium Oxalate Crystals Mod (None Seen) Urine Bacteria Few /hpf (None Seen) H Urine Hyaline Casts Mod /lpf (0 - 2) Urine Mucus Few (None Seen) Urine Glucose Normal mg/dL (Normal) Labs and/or images reviewed: Labs reviewed by me, Image(s) reviewed by me Assessment/Plan Assessment/Plan Intractable back pain likely due to Moderate to severe neural foraminal stenosis L3-4, L4-5 and L5-S1 consult for Dr. Rivera who is planning for surgery on Thursday [id number] lumbar degenerative disc disease Morbid obesity Diabetes type 2 Chronic back pain History of UTI History of osteomyelitis spine four years ago Cardiac clearance by Dr. Alexander, scheduled for stress test this morning Plan discussed with: Patient Date of Service: April 03, 2025 Billing Provider: CORDELL JOHNSON MD Common Visit Codes: [id number] INP/OBS CARE(HIGH) CORDELL JOHNSON MD April 03, 2025 08:31
[2025-04-03] MEDS: REGADENOSON 0.4 MG/5 ML SYRG IV ONE ×2 (09:48→09:55)
[2025-04-03] MEDS: MORPHINE SULFATE INJ 2 MG/ml SYRG IV PRN (09:48)
[2025-04-03] MEDS: ADENOSINE 109 MG in GIVE UN-DILUTED 0 ML IV ONE (09:55)
--- NOTE | 2025-04-03 11:06 | ECG ---
[facility] Test Date: 2025-04-01 Test Time: 13:04:33 Pat Name: GAB FLORES Department: Respiratoy Room: 0220 B Gender: M Ceramic Tile Installer: LUCIE : 1965 Requested By: ANGÉLICA ALTMAN Order Number: [id number] Reading MD: Denis Gordon Measurements Intervals [place] Rate: 79 P: 30 HI: 163 QRS: 26 QRSD: 90 T: 87 QT: 417 QTc: 479 Interpretive Statements Sinus rhythm Borderline T wave abnormalities Borderline prolonged QT interval Electronically Signed On 04-05-2025 11:57:02 PDT by Denis Gordon Please click the below link to view image of tracing.
--- NOTE | 2025-04-03 13:48 | DVHPN2 ---
Subjective Seen and examined at bedside, for stress test today. Planned for Lumbar spine surgery in AM Reviewed: Care Plan, H&P, Labs, Medications, Previous Orders, Radiology Changes from previous H/P or p: No Changes Musculoskeletal: back pain, leg pain Objective Vitals Vital Signs Date Time Temp Pulse Resp B/P (MAP) Pulse Ox O2 Delivery O2 Flow Rate FiO2 04/03/25 12:30 97.3 70 18 153/75 (101) 95 97.3 04/02/25 20:00 Room Air* 0 21 Intake/Output Intake and Output 04/03/25 07:00 Intake Total 1280 ml Output Total 2250 ml Balance -970 ml Intake Oral 1280 ml Output Urine Total 2250 ml Exam Gen: in bed NAD Cvs: N S1/S2, RRR Resp: BLAE Abd: Obese Client Application Support Engineer: AAO x 4 Medications Current Medications Medications Dose Ordered Sig/Gideon Route Start Time Stop Time Status Last Admin Dose Admin Acetaminophen/ Hydrocodone Bitart 1 tab Q4HP PRN PO 03/31/25 12:45 04/02/25 22:12 1 TAB Ondansetron HCl 4 mg Q4HP PRN IV 03/31/25 12:45 Acetaminophen 650 mg Q6HP PRN PO 03/31/25 12:45 Morphine Sulfate 2 mg Q4HPRN PRN IV 03/31/25 12:45 04/03/25 09:48 2 MG Diagnostic Test (Pha) 1 strip ACHS 03/31/25 17:00 04/03/25 11:30 1 STRIP Insulin Human Regular ACHS SC 03/31/25 17:00 04/03/25 12:27 4 UNITS Dextrose 50 ml UD PRN IV 03/31/25 13:00 Atorvastatin Calcium 10 mg HS PO 03/31/25 22:00 04/02/25 22:11 10 MG Hydrochlorothiazide 25 mg DAILY PO 04/01/25 10:00 04/03/25 11:19 25 MG Amlodipine Besylate 5 mg DAILY PO 04/01/25 10:00 04/03/25 11:20 5 MG Pantoprazole Sodium 40 mg DAILY IV 04/01/25 10:00 04/03/25 11:21 40 MG Lisinopril 40 mg DAILY PO 04/01/25 13:00 04/03/25 11:20 40 MG Ergocalciferol 50,000 unit Q7D PO 04/03/25 09:30 Laboratory Results Laboratory Tests 04/01/25 06:18 Urinalysis Test 03/31/25 12:17 Urine Color Yellow (Yellow) Urine Clarity Turbid (Clear) H Urine pH 5.5 (5.0-9.0) Urine Specific [place] 1.034 (1.001-1.035) Urine Protein 1+ (Negative) H Urine Ketones Negative (Negative) Urine Blood Negative /uL (Negative) Urine Nitrite Negative (Negative) Urine Bilirubin Negative (Negative) Urine Urobilinogen Normal mg/dL (Negative) Urine Leukocyte Esterase Negative /uL (Negative) Urine RBC 4 /hpf (0 - 3) Urine Microscopic WBC 5 /HPF (0-3) H Urine Squamous Epithelial Cells Few /hpf (<5) Urine Calcium Oxalate Crystals Mod (None Seen) Urine Bacteria Few /hpf (None Seen) H Urine Hyaline Casts Mod /lpf (0 - 2) Urine Mucus Few (None Seen) Urine Glucose Normal mg/dL (Normal) Assessment/Plan Assessment/Plan # Lumbar Stenosis - Surgery by Dr. Rivera # Chronic Right Heart Strain - Stress Test - Possible due to ZANDRA # Mild Chronic Systolic CHF - EF50% - Monitor for fluid overload # DM2 A1c 6.2 - SSI # Morbidly Obese - Medical Aide on weight loss - Consider Bariatric Surgery as outpatient Plan discussed with: Patient My Orders Orders - LYRIC ZHENG MD Procedure Category Date Status Time Vitamin D, 25-Hydroxy LAB 04/03/25 Logged 09:27 Ergocalciferol PHA 04/03/25 In Process (Vitamin D 50,000 09:30 Date of Service: April 03, 2025 Billing Provider: LYRIC ZHENG MD Common Visit Codes: [id number] INP/OBS CARE(HIGH) LYRIC ZHENG MD April 03, 2025 13:48
--- NOTE | 2025-04-03 15:42 | DVHSR ---
APPROVED REPORT Exam: Nuclear Stress Test Indication: Pre-Operative CV evaluation Stress Tech: Cherie Shankar Ht: 5 ft 8 in Wt: 286 lbs BSA: 2.38 m2 BMI: 43.48 Medical History Medical History: MORBID Obesity , HTN, Hyperlipidemia, Diabetes, OSTEOOF SPINE, SPINAL STENOSIS Allergies: TETRACYCLINE Stress Test Details Stress Test: Pharmacologic stress testing performed using 0.4 mg of regadenoson per 5 mL given IV ov er 10 seconds. Reason for pharmacologic stress test: PRE OP CARDIAC CLEARANCE. HR Resting HR: 63 bpmMax Heart Rate (APMHR): 163.763187 bpm Max HR Achieved: 88 bpmTarget HR (85% APMHR): 138.582389 bpm % of APMHR: 53.99 Recovery HR: 77 bpm BP Resting BP: 125/63 mmHg Recovery BP: 142/85 mmHg ECG Resting ECG: Sinus Rhythm Clinical Reason for Termination: Completed protocol Nurse Comments Received patient from Nuclear Medicine. Patient is A&O x4 and on RA. FOR VS please refer back to st ress test assessment documentation. Patient is connected to pvc monitor. See cardio-neuro proce dural notes for addtional details. PIV flushes well. Reviewed POC and patient verbalizes understand ing and consents to test. Lexiscan stress test performed per protocol. quality control technician administered the Cardiolite. Pat ient tolerated well and vitals returned to baseline. Transferred to Nuclear Medicine via wheelchair with tech in stable condition. Stress ECG Conclusion lvef 32% dilated LV anterior and lateral wall ischemia is noted abnormal study NM EXAM: Myocardial Perfusion REST/STRESS Imaging Protocol: Rest Tc-99m/Stress Tc-99m 1 day Resting Data Rest SPECT myocardial perfusion imaging was performed in supine position 30 minutes following the int ravenous injection of 12.2 mCi of Tc-99m Sestamibi. Time of rest injection: 0815 Time of rest imagin Administration Route: IV Administration Site: Right Arm Pharmacologic Stress Pharmacologic stress test was performed by injecting Regadenoson 0.4 mg IV push followed by the intra venous injection of 32.3 mCi of Tc-99m Sestamibi. Time of stress injection: 1010 Time of stress imagin Administration Route: IV Administration Site: Right AC Gated Stress SPECT was performed 65 minutes after stress injection. The images were gated to evaluate regional wall motion and calculate left ventricular ejection fracti on. Nuclear Conclusion Nuclear Findings: positive for ischemia Left Ventricular Function: abnormal lvef 32% dilated LV anterior and lateral wall ischemia is noted abnormal study
[2025-04-03 15:45] LABS: INR 1.03 (0.9-1.15); Partial Thromboplastin Time 23.7 SEC (24.5-34.5); Prothrombin Time 10.9 sec (9.3-11.8)
--- NOTE | 2025-04-03 16:11 | DVH ---
CHEST RADIOGRAPH Indication: Pre-operative procedure prodocol Technique: Single frontal view of the chest was obtained Comparison: CHEST PORTABLE on DOS: 12/26/20 FINDINGS: The cardiac silhouette is enlarged. The lungs demonstrate patchy airspace opacities. The pulmonary va sculature is prominent. Small bilateral pleural effusions. There is no pneumothorax. IMPRESSION: 1. Cardiomegaly with pulmonary vascular congestion and bilateral patchy airspace opacities. 2. Small bilateral pleural effusions.
[2025-04-03] MEDS: ERGOCALCIFEROL 50,000 UNIT(1.25MG) CAP PO SCH (18:36)
--- NOTE | 2025-04-03 22:10 | DVHPN2 ---
Progress Note - Dictate Date Seen: April 03, 2025 Medical Necessity Reason Pt with a Central, PICC or Fol: No Subjective Patient was seen and evaluated in follow up. Patient is complaining of back pain. Nuclear Stress Test is positive for ischemia, EF of 35%. Patient is planned for lumbar spine surgery in AM. vital signs Vital Sign Date Time Temp Pulse Resp B/P (MAP) Pulse Ox O2 Delivery O2 Flow Rate FiO2 04/03/25 16:30 98.6 83 18 118/63 (81) 95 98.6 04/02/25 20:00 Room Air* 0 21 Total Intake and Output 04/02/25 04/02/25 04/03/25 15:00 23:00 07:00 Intake Total 1280 ml Output Total 1475 ml 775 ml Balance -195 ml -775 ml medications Current Medications Medications Dose Ordered Sig/Gideon Route Start Time Stop Time Status Last Admin Dose Admin Acetaminophen/ Hydrocodone Bitart 1 tab Q4HP PRN PO 03/31/25 12:45 04/03/25 18:36 1 TAB Ondansetron HCl 4 mg Q4HP PRN IV 03/31/25 12:45 Acetaminophen 650 mg Q6HP PRN PO 03/31/25 12:45 Morphine Sulfate 2 mg Q4HPRN PRN IV 03/31/25 12:45 04/03/25 09:48 2 MG Diagnostic Test (Pha) 1 strip ACHS 03/31/25 17:00 04/03/25 17:00 1 STRIP Insulin Human Regular ACHS SC 03/31/25 17:00 04/03/25 12:27 4 UNITS Dextrose 50 ml UD PRN IV 03/31/25 13:00 Atorvastatin Calcium 10 mg HS PO 03/31/25 22:00 04/02/25 22:11 10 MG Hydrochlorothiazide 25 mg DAILY PO 04/01/25 10:00 04/03/25 11:19 25 MG Amlodipine Besylate 5 mg DAILY PO 04/01/25 10:00 04/03/25 11:20 5 MG Pantoprazole Sodium 40 mg DAILY IV 04/01/25 10:00 04/03/25 11:21 40 MG Lisinopril 40 mg DAILY PO 04/01/25 13:00 04/03/25 11:20 40 MG Ergocalciferol 50,000 unit Q7D PO 04/03/25 09:30 04/03/25 18:36 50,000 UNIT objective GENERAL: Alert and oriented x 3. No acute distress. EYES: PERRL, EOMI. Anicteric. HENT: Moist mucous membranes. LUNGS: Diminished breath sounds. CARDIOVASCULAR: Regular rate and rhythm. ABDOMEN: Soft, nontender and nondistended. EXTREMITIES: No edema. NEUROLOGIC: No focal neurological deficits. SKIN: Warm, dry. laboratory and microbiology Laboratory Tests 04/01/25 06:18 Test 04/01/25 06:18 Range/Units Serum Glucose 126 H 74-106 mg/dL Problem List Pre-op Cardiac Assessment. Spinal stenosis. Uncontrolled HTN. Morbid obesity. HLD. Assessment/Plan Continued all current supportive medical care. Morphine and [place] for pain management. Amlodipine, Lisinopril. Lipitor. GI prophylactics. Additional plan as per the hospital course. Plan discussed with: Patient JANICE BRANCH MD April 03, 2025 22:10
[2025-04-04] VITALS (11 sets, daily range): BP systolic 133–163; BP diastolic 64–96; PULSE 66–78; RESP 10–19; TEMP 97–98.8; O2SAT 90–97
[2025-04-04] MEDS: HEPARIN IN NS 1000Units/500mL 1,500 ML ONE (16:22)
[2025-04-04] MEDS: IODIXANOL 320MG/ML 100ML BTL IV ONE ×3 (16:22→19:12)
[2025-04-04] MEDS: MIDAZOLAM HCL 2MG/2ML 2ml VIAL (1mg/ml) ONE (16:44)
[2025-04-04] MEDS: fentaNYL CITRATE 100 MCG/2 ML VL ONE (16:44)
[2025-04-04] MEDS: ANGIOMAX 250 MG VIAL IV ONE ×2 (16:44→18:07)
[2025-04-04] MEDS: HEPARIN SODIUM (PORCINE) 5000 UNITS/ML 1ML VIAL ONE (16:44)
[2025-04-04] MEDS: VERAPAMIL 2.5MG/ML INJ 2ML VIAL IV ONE (16:44)
[2025-04-04] MEDS: LIDOCAINE 2%HCL (LOCAL ANESTH.) INJ 10ml MDV ONE (16:45)
[2025-04-04] MEDS: SODIUM CHL 0.9% 50 ML ONE ×2 (16:45→18:07)
--- NOTE | 2025-04-04 17:32 | DVHPN2 ---
Subjective Seen and examined at bedside, for stress test tomorrow. Reviewed: Care Plan, H&P, Labs, Medications, Previous Orders, Radiology Changes from previous H/P or p: No Changes Musculoskeletal: back pain, leg pain Objective Vitals Vital Signs Date Time Temp Pulse Resp B/P (MAP) Pulse Ox O2 Delivery O2 Flow Rate FiO2 04/04/25 12:30 98.2 71 14 133/73 (93) 95 98.2 04/04/25 08:00 Room Air* 0 21 Intake/Output Intake and Output 04/04/25 07:00 Output Total 300 ml Balance -300 ml Output Urine Total 300 ml # Voids 3 Exam Gen: in bed NAD Cvs: N S1/S2, RRR Resp: BLAE Abd: Obese Software Application Tester: AAO x 4 Medications Current Medications Medications Dose Ordered Sig/Gideon Route Start Time Stop Time Status Last Admin Dose Admin Acetaminophen/ Hydrocodone Bitart 1 tab Q4HP PRN PO 03/31/25 12:45 04/04/25 16:04 1 TAB Ondansetron HCl 4 mg Q4HP PRN IV 03/31/25 12:45 Acetaminophen 650 mg Q6HP PRN PO 03/31/25 12:45 Morphine Sulfate 2 mg Q4HPRN PRN IV 03/31/25 12:45 04/03/25 09:48 2 MG Diagnostic Test (Pha) 1 strip ACHS 03/31/25 17:00 04/04/25 11:14 1 STRIP Insulin Human Regular ACHS SC 03/31/25 17:00 04/04/25 06:05 2 UNITS Dextrose 50 ml UD PRN IV 03/31/25 13:00 Atorvastatin Calcium 10 mg HS PO 03/31/25 22:00 04/03/25 22:19 10 MG Hydrochlorothiazide 25 mg DAILY PO 04/01/25 10:00 04/04/25 09:12 25 MG Amlodipine Besylate 5 mg DAILY PO 04/01/25 10:00 04/04/25 09:13 5 MG Pantoprazole Sodium 40 mg DAILY IV 04/01/25 10:00 04/04/25 09:12 40 MG Lisinopril 40 mg DAILY PO 04/01/25 13:00 04/04/25 09:13 40 MG Ergocalciferol 50,000 unit Q7D PO 04/03/25 09:30 04/03/25 18:36 50,000 UNIT Laboratory Results Laboratory Tests 04/01/25 06:18 Urinalysis Test 03/31/25 12:17 Urine Color Yellow (Yellow) Urine Clarity Turbid (Clear) H Urine pH 5.5 (5.0-9.0) Urine Specific [place] 1.034 (1.001-1.035) Urine Protein 1+ (Negative) H Urine Ketones Negative (Negative) Urine Blood Negative /uL (Negative) Urine Nitrite Negative (Negative) Urine Bilirubin Negative (Negative) Urine Urobilinogen Normal mg/dL (Negative) Urine Leukocyte Esterase Negative /uL (Negative) Urine RBC 4 /hpf (0 - 3) Urine Microscopic WBC 5 /HPF (0-3) H Urine Squamous Epithelial Cells Few /hpf (<5) Urine Calcium Oxalate Crystals Mod (None Seen) Urine Bacteria Few /hpf (None Seen) H Urine Hyaline Casts Mod /lpf (0 - 2) Urine Mucus Few (None Seen) Urine Glucose Normal mg/dL (Normal) Assessment/Plan Assessment/Plan # Chronic Right Heart Strain - Stress Test POSITIVE FOR ISCHEMIA - LHC TOMORROW - Possible due to ZANDRA # Lumbar Stenosis - Surgery by Dr. Rivera after angiogram # Mild Chronic Systolic CHF - EF50% - Monitor for fluid overload # DM2 A1c 6.2 - SSI # Morbidly Obese - Conservation Officer on weight loss - Consider Bariatric Surgery as outpatient Plan discussed with: Patient Date of Service: April 04, 2025 Billing Provider: LYRIC ZHENG MD Common Visit Codes: [id number] INP/OBS CARE(HIGH) LYRIC ZHENG MD April 04, 2025 17:32
[2025-04-04] MEDS: TICAGRELOR 90 MG TAB ONE (19:12)
[2025-04-04] MEDS: SODIUM CHLORIDE 0.9% 1,000 ML IV SCH (21:03)
--- NOTE | 2025-04-04 21:35 | DVHPN2 ---
Progress Note - Dictate Date Seen: April 04, 2025 Medical Necessity Reason Pt with a Central, PICC or Fol: No Subjective Patient was seen and evaluated in follow up. No overnight events. Patient is recommended for left heart cath. Risks and benefits were discussed with the patient. vital signs Vital Sign Date Time Temp Pulse Resp B/P (MAP) Pulse Ox O2 Delivery O2 Flow Rate FiO2 04/04/25 20:15 18 Room Air* 0 21 04/04/25 19:52 77 150/80 (103) 97 04/04/25 19:40 98.6 98.6 Total Intake and Output 04/03/25 04/03/25 04/04/25 15:00 23:00 07:00 Output Total 300 ml Balance -300 ml medications Current Medications Medications Dose Ordered Sig/Gideon Route Start Time Stop Time Status Last Admin Dose Admin Acetaminophen/ Hydrocodone Bitart 1 tab Q4HP PRN PO 03/31/25 12:45 04/04/25 21:00 1 TAB Ondansetron HCl 4 mg Q4HP PRN IV 03/31/25 12:45 Acetaminophen 650 mg Q6HP PRN PO 03/31/25 12:45 Morphine Sulfate 2 mg Q4HPRN PRN IV 03/31/25 12:45 04/03/25 09:48 2 MG Diagnostic Test (Pha) 1 strip ACHS 03/31/25 17:00 04/04/25 21:00 1 STRIP Insulin Human Regular ACHS SC 03/31/25 17:00 04/04/25 21:02 2 UNITS Dextrose 50 ml UD PRN IV 03/31/25 13:00 Hydrochlorothiazide 25 mg DAILY PO 04/01/25 10:00 04/04/25 09:12 25 MG Amlodipine Besylate 5 mg DAILY PO 04/01/25 10:00 04/04/25 09:13 5 MG Pantoprazole Sodium 40 mg DAILY IV 04/01/25 10:00 04/04/25 09:12 40 MG Lisinopril 40 mg DAILY PO 04/01/25 13:00 04/04/25 09:13 40 MG Ergocalciferol 50,000 unit Q7D PO 04/03/25 09:30 04/03/25 18:36 50,000 UNIT Sodium Chloride 1,000 ml @ 50 mls/hr Q20H IV 04/04/25 20:00 04/04/25 21:03 50 MLS/HR Clopidogrel Bisulfate 75 mg DAILY PO 04/06/25 08:00 Aspirin 81 mg DAILY PO 04/05/25 10:00 Atorvastatin Calcium 80 mg HS PO 04/05/25 22:00 objective GENERAL: Alert and oriented x 3. No acute distress. EYES: PERRL, EOMI. Anicteric. HENT: Moist mucous membranes. LUNGS: Diminished breath sounds. CARDIOVASCULAR: Regular rate and rhythm. ABDOMEN: Soft, nontender and nondistended. EXTREMITIES: No edema. NEUROLOGIC: No focal neurological deficits. SKIN: Warm, dry. laboratory and microbiology Laboratory Tests 04/01/25 06:18 Test 04/01/25 06:18 Range/Units Serum Glucose 126 H 74-106 mg/dL Problem List Chronic Right Heart Strain. Spinal stenosis. Uncontrolled HTN. Morbid obesity. HLD. Chronic Systolic CHF. DM2. Assessment/Plan Continued all current supportive medical care. Morphine and [place] for pain management. Amlodipine, Lisinopril. Aspirin, Lipitor, Plavix. GI prophylactics. Additional plan as per the hospital course. Plan discussed with: Patient JANICE BRANCH MD April 04, 2025 21:35
--- NOTE | 2025-04-04 23:44 | DVHOP ---
DATE OF SURGERY: 04/04/2025 TECHNIQUE PERFORMED: * Left coronary artery angiography. * Balloon angioplasty of the left obtuse marginal artery with a 2.0 x 12 mm length semi-compliant balloon. COMPLICATIONS: None. ASSISTANTS: Assisted by Kishor. Other assistants are Deandre Ye Steven and Lemuel. INDICATIONS: The patient has underlying 90% stenosis of the left obtuse marginal artery. DESCRIPTION OF PROCEDURE: Risks and benefits discussed. We have put an XB 3.5 6-Tunis[place] guiding catheter. Angiomax was given. We also put a [place] wire, which went into the left first obtuse marginal artery. We had 2.0 x 12 mm length balloon and balloon angioplasty was done. We are taking the balloon up to 9 atmospheres and the balloon had been fully inflated. Angiography was done. Result was satisfactory. Stenting was not done because it was a small artery. CONCLUSIONS: * Prior to performing the procedure #1, the left obtuse marginal artery was 90% block. MARIBEL grade 3 flow. * Post procedure, MARIBEL grade 3 flow, residual stenosis is 0%. * No spasm. No dissection. No thrombosis. Gloria Alexander MD MP/SYDNEY/HILARIO TID: [id number] RECEIPT: [id number] [facility]
[2025-04-05] VITALS (8 sets, daily range): BP systolic 119–159; BP diastolic 65–91; PULSE 60–75; RESP 16–75; TEMP 97.6–98.8; O2SAT 92–100
--- NOTE | 2025-04-05 09:09 | DVHOP ---
DATE OF SURGERY: 04/04/2025 TECHNIQUE PERFORMED: * Ultrasound of the right radial artery. * Management of the conscious sedation. * Insertion of a 6-Kos[place] arterial line from right radial artery. * Left heart cath. * Left ventriculogram. * [place] selective left and right coronary artery angiography. TIRE ADJUSTER: Assisted by our staff Gage, Deandre Samuels, Ephraim, and Jone. He has got abnormal myocardial perfusion scan. The procedure, risks and benefits discussion done with his also. In a standard manner, the right radial area thoroughly cleaned with soap and Betadine. Lidocaine was given and 6-Kosovan arterial line was placed in a standard manner under aseptic precaution TIG catheter 5-Kosovan 4.0 we also did a right coronary artery angiography with the help of the MANN catheter we were able to do a left heart catheterization via right radial artery. Procedure completed. IMPRESSION: * Normal left main. * Left main dividing left artery and the circumflex artery, the left anterior descending artery ventricle is widely open, mild diffuse plaque noted all over. * The diagonal artery is a very large artery and diagonal artery at the proximal one-third region is narrowed in the range of 99%, but it is a very large artery of at least 3.5 mm. * The circumflex artery is moderately large artery. The fourth margin of branch has got 90% narrowing. * The second margin branch has got moderate-degree plaque, had been noted in the anterior proximal region. * The [place] circumflex artery widely open without any stenosis. * The right coronary artery is a large dominant artery. Right coronary artery been narrowed, long segment in the range of 99%, MARIBEL grade 2 flow has been noted from mid to distal region of the right coronary artery. * The ejection fraction of the left ventricle is 60%. PLAN OF ACTION: The patient underwent multivessel angioplasty stenting. Gloria Alexander MD MP/VIKKI/KEYLA/STELLA TID: [id number] RECEIPT: [id number] [facility]
--- NOTE | 2025-04-05 09:23 | DVHOP ---
DATE OF SURGERY: 04/04/2025 TECHNIQUE PERFORMED: * Emergency case. * Ultrasound of the right radial artery. * Insertion of a 6-Algerian arterial line in the right radial artery. * Right coronary artery angiography. * Balloon angioplasty of mid region of the right coronary artery with 3.0 x 20 mm in length noncompliant balloon and mid artery side with 3.25 mm in size. * Stenting and angiography of the mid region of the right coronary artery with a 3.0 x 26 mm in length [place] drug-eluting stent of [employer] Digital. * Intravascular ultrasound of the right coronary artery. * Angioplasty of the right coronary artery stented region with 3.5 x 20 mm in length noncompliant balloon and mid artery to 3.5 mm in size. COMPLICATIONS: None. ASSISTANTS: Assisted by our staff over here is Garima. Other assistants are Ehpraim Zepeda and Steven, and Renard. INDICATIONS: The patient has a long segment, 99% stenosis of the right coronary artery in the entire medial segment. MARIBEL grade 2 flow has been noted. DESCRIPTION OF PROCEDURE: Risks and benefits have been explained. The patient was brought to labor law professor with the right radial area thoroughly cleaned with soap and Betadine. A 6-Algerian arterial line also has been previously placed. We also gave IV Angiomax. We had put a MANN catheter. A right coronary angiography was done. Angiomax started and two wires were passed. We put a balloon 3.0 x 20 mm length noncompliant balloon and taken up to 25 atmospheres. Proximal, mid and distal region of the lesion cleared and the whole standard balloon widely opened, almost to 3.25 mm. Subsequently, we have deployed a stent at 3.0 x 26 mm length, [place] stent from the [employer] inflated up to 15 atmospheres. Stent size was increased to 3.25 mm balloon deflated. Subsequently we intravascular ultrasound so now, we have put a noncompliant 3.5 balloon, which is 15 mm length and we inserted proximal and the distal region of the stent in artery to 3.5 mm in size. The procedure went well and balloon, wire, catheter all have been discontinued now. CONCLUSION: * Prior to performing the procedure #1, the mid region of the right coronary artery is 99% type 3 lesion, bifurcation lesion and calcified lesion. * Post procedure, MARIBEL grade 3 flow, residual stenosis is 0%. * No spasm. No dissection. No thrombosis. PLAN OF ACTION: Advised for Aspirin, Brilinta, beta-catie, and cholesterol reducing medicine. The procedure went well. Gloria Alexander MD MP/LULÚ/HILARIO TID: [id number] RECEIPT: [id number] [facility]
[2025-04-05] MEDS: CLOPIDOGREL BISULFATE 75 MG TAB PO ONE (09:25)
[2025-04-05] MEDS: ASPirin 81 mg TAB PO SCH (09:28)
--- NOTE | 2025-04-05 09:32 | DVHOP ---
DATE OF SURGERY: 04/04/2025 TECHNIQUE PERFORMED: * Left coronary artery angiography. * Balloon angioplasty of the left diagonal artery with 3.0 x 8 mm length noncompliant balloon, inflated up to 3.25 mm in size. * Stenting and angioplasty of the proximal region of a large diagonal artery with a 3.5 x 12 mm length [place] stent of [place]. COMPLICATIONS: None. FINANCIAL OPERATIONS ANALYST: Assisted by our staff Shreya Zepeda. INDICATIONS: The patient had 99% stenosis of the left diagonal branch, underlying MARIBEL grade 3 flow also has been noted. DESCRIPTION OF PROCEDURE: So now, we have put an XB 3.5 6-Spanish guiding catheter, Angiomax was given, around two wire were passed which went into the artery. Subsequently, we have to use the [place] Floppy wire, which went in the diagonal branch, which 90-degree to left ventricular artery. Subsequently we put a balloon 3.0 x 10 mm and 3.0 x 8 mm in length noncompliant balloon, balloon angioplasty was done. Subsequently, we put 3.5 x 12 mm length stent and the stent has been fully deployed. The stent was deployed total of about 13 atmosphere and hence that was increased to 3.5 mm in size. Balloon was deflated. Balloon had been discontinued. Angiography was done. Result was satisfactory. There were no complications. CONCLUSIONS: * Prior to performing the procedure: The large diagonal artery arising from left ventricular artery was 99% blocked in proximal one-third of the region * The post-procedure MARIBEL grade 3 flow. Residual stenosis is 0%. * The lesion was calcified 99% blocked, post-procedure MARIBEL grade 3 flow, residual stenosis is 0%. No spasm, no dissection, no thrombosis. Procedure went well. Gloria Alexander MD MP/ERIKA/SAMANTHA TID: [id number] RECEIPT: [id number] [facility]
--- NOTE | 2025-04-05 16:58 | DVHPN2 ---
Progress Note - Dictate Date Seen: April 05, 2025 Medical Necessity Reason Pt with a Central, PICC or Fol: No Subjective Patient was seen and evaluated in follow up. Patient underwent left heart cath, [place] selective left and right coronary artery angiography, left coronary artery angiography, balloon angioplasty of the left obtuse marginal artery, Balloon angioplasty of the left diagonal artery, stenting and angioplasty of the proximal region of a large diagonal artery, right coronary artery angiography, balloon angioplasty of mid region of the right coronary artery, stenting and angiography of the mid region of the right coronary artery, angioplasty of the right coronary artery stented region. Advised for Aspirin, Brilinta, beta- catie, and cholesterol reducing medicine. The procedure went well. BS are in the 150s. vital signs Vital Sign Date Time Temp Pulse Resp B/P (MAP) Pulse Ox O2 Delivery O2 Flow Rate FiO2 04/05/25 13:00 97.6 64 18 151/90 (110) 94 97.6 04/05/25 08:00 Room Air* 0 21 Total Intake and Output 04/04/25 04/04/25 04/05/25 15:00 23:00 07:00 Intake Total 400 ml Output Total 500 ml 500 ml Balance -500 ml -100 ml medications Current Medications Medications Dose Ordered Sig/Gideon Route Start Time Stop Time Status Last Admin Dose Admin Acetaminophen/ Hydrocodone Bitart 1 tab Q4HP PRN PO 03/31/25 12:45 04/05/25 10:32 1 TAB Ondansetron HCl 4 mg Q4HP PRN IV 03/31/25 12:45 Acetaminophen 650 mg Q6HP PRN PO 03/31/25 12:45 Morphine Sulfate 2 mg Q4HPRN PRN IV 03/31/25 12:45 04/03/25 09:48 2 MG Diagnostic Test (Pha) 1 strip ACHS 03/31/25 17:00 04/05/25 11:52 1 STRIP Insulin Human Regular ACHS SC 03/31/25 17:00 04/05/25 11:52 2 UNITS Dextrose 50 ml UD PRN IV 03/31/25 13:00 Hydrochlorothiazide 25 mg DAILY PO 04/01/25 10:00 04/05/25 09:29 25 MG Amlodipine Besylate 5 mg DAILY PO 04/01/25 10:00 04/05/25 09:28 5 MG Pantoprazole Sodium 40 mg DAILY IV 04/01/25 10:00 04/05/25 09:27 40 MG Lisinopril 40 mg DAILY PO 04/01/25 13:00 04/05/25 09:29 40 MG Ergocalciferol 50,000 unit Q7D PO 04/03/25 09:30 04/03/25 18:36 50,000 UNIT Sodium Chloride 1,000 ml @ 50 mls/hr Q20H IV 04/04/25 20:00 04/04/25 21:03 50 MLS/HR Clopidogrel Bisulfate 75 mg DAILY PO 04/06/25 08:00 Aspirin 81 mg DAILY PO 04/05/25 10:00 04/05/25 09:28 81 MG Atorvastatin Calcium 80 mg HS PO 04/05/25 22:00 objective GENERAL: Alert and oriented x 3. No acute distress. EYES: PERRL, EOMI. Anicteric. HENT: Moist mucous membranes. LUNGS: Diminished breath sounds. CARDIOVASCULAR: Regular rate and rhythm. ABDOMEN: Soft, nontender and nondistended. EXTREMITIES: No edema. NEUROLOGIC: No focal neurological deficits. SKIN: Warm, dry. laboratory and microbiology Laboratory Tests 04/01/25 06:18 Test 04/01/25 06:18 Range/Units Serum Glucose 126 H 74-106 mg/dL Problem List Chronic Right Heart Strain. Spinal stenosis. Uncontrolled HTN. Morbid obesity. HLD. Chronic Systolic CHF. DM2. Assessment/Plan Continued all current supportive medical care. Morphine and [place] for pain management. Amlodipine, Lisinopril. Aspirin, Lipitor, Plavix. GI prophylactics. Additional plan as per the hospital course. Dietary Evaluation Review Comments: Upgrade to CCHO-60 diet to accommondate Pt's energy needs Expected Outcomes/Goals: Gradual wt loss, controlled DM Plan discussed with: Patient JANICE BRANCH MD April 05, 2025 14:19
--- NOTE | 2025-04-05 17:56 | DVHPN2 ---
Subjective Seen and examined at bedside, underwent Angiogram with stent placements x 2 with balloon angioplasty. Reviewed: Care Plan, H&P, Labs, Medications, Previous Orders, Radiology Changes from previous H/P or p: No Changes Musculoskeletal: back pain, leg pain Objective Vitals Vital Signs Date Time Temp Pulse Resp B/P (MAP) Pulse Ox O2 Delivery O2 Flow Rate FiO2 04/05/25 17:01 97.7 70 20 148/91 (110) 94 97.7 04/05/25 08:00 Room Air* 0 21 Intake/Output Intake and Output 04/05/25 07:00 Intake Total 400 ml Output Total 1000 ml Balance -600 ml IV Total 400 ml Output Urine Total 1000 ml # Voids 2 Exam Gen: in bed NAD Cvs: N S1/S2, RRR Resp: BLAE Abd: Obese Dewaterer Operator: AAO x 4 Medications Current Medications Medications Dose Ordered Sig/Gideon Route Start Time Stop Time Status Last Admin Dose Admin Acetaminophen/ Hydrocodone Bitart 1 tab Q4HP PRN PO 03/31/25 12:45 04/05/25 16:25 1 TAB Ondansetron HCl 4 mg Q4HP PRN IV 03/31/25 12:45 Acetaminophen 650 mg Q6HP PRN PO 03/31/25 12:45 Morphine Sulfate 2 mg Q4HPRN PRN IV 03/31/25 12:45 04/03/25 09:48 2 MG Diagnostic Test (Pha) 1 strip ACHS 03/31/25 17:00 04/05/25 16:30 1 STRIP Insulin Human Regular ACHS SC 03/31/25 17:00 04/05/25 11:52 2 UNITS Dextrose 50 ml UD PRN IV 03/31/25 13:00 Hydrochlorothiazide 25 mg DAILY PO 04/01/25 10:00 04/05/25 09:29 25 MG Amlodipine Besylate 5 mg DAILY PO 04/01/25 10:00 04/05/25 09:28 5 MG Pantoprazole Sodium 40 mg DAILY IV 04/01/25 10:00 04/05/25 09:27 40 MG Lisinopril 40 mg DAILY PO 04/01/25 13:00 04/05/25 09:29 40 MG Ergocalciferol 50,000 unit Q7D PO 04/03/25 09:30 04/03/25 18:36 50,000 UNIT Sodium Chloride 1,000 ml @ 50 mls/hr Q20H IV 04/04/25 20:00 04/05/25 16:00 50 MLS/HR Clopidogrel Bisulfate 75 mg DAILY PO 04/06/25 08:00 Aspirin 81 mg DAILY PO 04/05/25 10:00 04/05/25 09:28 81 MG Atorvastatin Calcium 80 mg HS PO 04/05/25 22:00 Laboratory Results Laboratory Tests 04/01/25 06:18 Urinalysis Test 03/31/25 12:17 Urine Color Yellow (Yellow) Urine Clarity Turbid (Clear) H Urine pH 5.5 (5.0-9.0) Urine Specific [place] 1.034 (1.001-1.035) Urine Protein 1+ (Negative) H Urine Ketones Negative (Negative) Urine Blood Negative /uL (Negative) Urine Nitrite Negative (Negative) Urine Bilirubin Negative (Negative) Urine Urobilinogen Normal mg/dL (Negative) Urine Leukocyte Esterase Negative /uL (Negative) Urine RBC 4 /hpf (0 - 3) Urine Microscopic WBC 5 /HPF (0-3) H Urine Squamous Epithelial Cells Few /hpf (<5) Urine Calcium Oxalate Crystals Mod (None Seen) Urine Bacteria Few /hpf (None Seen) H Urine Hyaline Casts Mod /lpf (0 - 2) Urine Mucus Few (None Seen) Urine Glucose Normal mg/dL (Normal) Assessment/Plan Assessment/Plan # Chronic Right Heart Strain - Stress Test POSITIVE FOR ISCHEMIA - LHC DONE WITH PCI - Possible due to ZANDRA # Lumbar Stenosis - Surgery by Dr. Rivera after angiogram # Mild Chronic Systolic CHF - EF50% - Monitor for fluid overload # DM2 A1c 6.2 - SSI # Morbidly Obese - Digital Service Engineer on weight loss - Consider Bariatric Surgery as outpatient Plan discussed with: Patient, Spouse My Orders Orders - LYRIC ZHENG MD Procedure Category Date Status Time * Seed Cleaner Operator CONS 04/05/25 Transmitted Consult Date of Service: April 05, 2025 Billing Provider: LYRIC ZHENG MD Common Visit Codes: [id number] INP/OBS CARE(MOD) LYRIC ZHENG MD April 05, 2025 17:56
[2025-04-05] MEDS: CARVEDILOL 12.5 MG TAB PO SCH (21:21)
[2025-04-05] MEDS: ATORVASTATIN 20 MG TAB PO SCH (21:21)
[2025-04-06 01:00] VITALS: BP 150/89; PULSE 93; RESP 19; TEMP 98.2; O2SAT 93
[2025-04-06 05:00] VITALS: BP 148/92; PULSE 76; RESP 19; TEMP 98.3; O2SAT 96
[2025-04-06 08:00] VITALS: PULSE 61; PULSE 76; RESP 19; O2SAT 96
[2025-04-06] MEDS ORDERED: CLOPIDOGREL BISULFATE 75 MG TAB PO SCH (08:00)
[2025-04-06] MEDS: TICAGRELOR 90 MG TAB PO SCH (08:41)
[2025-04-06] MEDS: amLODIPine BESYLATE 5 MG TAB PO SCH (08:42)
[2025-04-06 08:47] VITALS: BP 149/82; PULSE 68; RESP 19; TEMP 97.9; O2SAT 90
--- NOTE | 2025-04-06 10:28 | DVHDS2 ---
Discharge Summary Date of Admission March 31, 2025 at 12:39 Date of Discharge: April 06, 2025 Admitting Diagnosis Lumbar Pain Labs/Diagnostic Data: Laboratory Results Test 04/06/25 06:13 04/03/25 15:10 04/03/25 14:24 04/01/25 14:07 POC Glucose 135 mg/dl (70-106) Prothrombin Time 10.9 sec (9.3-11.8) Prothrombin Time INR 1.03 (0.9-1.15) Activated Partial Thromboplast Time 23.7 SEC (24.5-34.5) Vitamin D 25-Hydroxy 25.9 ng/mL (30.0-100) Troponin I High Sensitivity 39 ng/L (</=54) Test 04/01/25 06:18 03/31/25 12:26 03/31/25 12:17 White Blood Count 8.0 10^3/uL (4.4-10.8) Red Blood Count 5.49 10^6/uL (4.5-5.90) Hemoglobin 15.8 g/dL (13.5-17.5) Hematocrit 46.1 % (41.0-53.0) Mean Corpuscular Volume 84.0 fL (80.0-100.0) Mean Corpuscular Hemoglobin 28.8 pg (28.0-32.0) Mean Corpuscular Hemoglobin Concent 34.3 g/dL (32.0-36.0) Red Cell Distribution Width 14.0 % (11.8-14.3) Platelet Count 252 10^3/uL (140-450) Mean Platelet Volume 8.7 fL (6.9-10.8) Neutrophils (%) (Auto) 69.5 % (37.0-80.0) Lymphocytes (%) (Auto) 18.9 % (10.0-50.0) Monocytes (%) (Auto) 8.4 % (0.0-12.0) Eosinophils (%) (Auto) 2.6 % (0.0-7.0) Basophils (%) (Auto) 0.6 % (0.0-2.0) Neutrophils # (Auto) 5.6 10 ^3/uL (1.6-8.6) Lymphocytes # (Auto) 1.5 10 ^3/uL (0.4-5.4) Monocytes # (Auto) 0.7 10 ^3/uL (0-1.3) Eosinophils # (Auto) 0.2 10 ^3/uL (0-0.8) Basophils # (Auto) 0 10 ^3/uL (0-0.2) Nucleated Red Blood Cells 0.1 % Sodium Level 141 mmol/L (136-145) Potassium Level 3.2 mmol/L (3.5-5.1) Chloride Level 101 mmol/L (98-107) Carbon Dioxide Level 29 mmol/L (20-31) Anion Gap 11 (5-15) Blood Urea Nitrogen 17 mg/dL (9-23) Creatinine 0.73 mg/dL (0.700-1.30) Glomerular Filtration Rate Calc 106 mL/min (>90) BUN/Creatinine Ratio 23.3 (10.0-20.0) Serum Glucose 126 mg/dL (74-106) Calcium Level 9.7 mg/dL (8.7-10.4) Total Bilirubin 0.7 mg/dL (0.2-1.0) Aspartate Amino Transferase (AST) 17 U/L (13-40) Alanine Aminotransferase (ALT) 29 U/L (7-40) Alkaline Phosphatase 108 U/L (46-116) Total Protein 7.7 g/dL (5.7-8.2) Albumin 4.4 g/dL (3.2-4.8) Hemoglobin A1c 6.2 % A1C (<5.7) Lactic Acid Level 1.6 mmol/L (0.4-2.0) C-Reactive Protein High Sensitivity 0.93 mg/dL (<1.0) Urine Color Yellow (Yellow) Urine Clarity Turbid (Clear) Urine pH 5.5 (5.0-9.0) Urine Specific [place] 1.034 (1.001-1.035) Urine Protein 1+ (Negative) Urine Ketones Negative (Negative) Urine Blood Negative /uL (Negative) Urine Nitrite Negative (Negative) Urine Bilirubin Negative (Negative) Urine Urobilinogen Normal mg/dL (Negative) Urine Leukocyte Esterase Negative /uL (Negative) Urine RBC 4 /hpf (0 - 3) Urine Microscopic WBC 5 /HPF (0-3) Urine Squamous Epithelial Cells Few /hpf (<5) Urine Calcium Oxalate Crystals Mod (None Seen) Urine Bacteria Few /hpf (None Seen) Urine Hyaline Casts Mod /lpf (0 - 2) Urine Mucus Few (None Seen) Urine Glucose Normal mg/dL (Normal) Other Laboratory Tests 04/01/25 06:18 Brief Hx & Hospital Course: 59 yo pleasant man with long history of low back pain an sciatica including a history of an infection in the back who presents with increasing low back pain radiating down both legs to the feet to the level that he is unable to ambulate severe parasthesias in the buttocks, thighs, legs and feet, increasing numbness in the legs and increasing balance trouble. Patient underwent cardiac clearance which was positive and underwent Left Angiogram with PCI and balloon angioplasty. Will consider Spine surgery at a later point in >6 months. Operations or Procedures DATE OF SURGERY: 04/04/2025 TECHNIQUE PERFORMED: * Left coronary artery angiography. * Balloon angioplasty of the left diagonal artery with 3.0 x 8 mm length noncompliant balloon, inflated up to 3.25 mm in size. * Stenting and angioplasty of the proximal region of a large diagonal artery with a 3.5 x 12 mm length Ge [place] stent of [employer]. INDICATIONS: The patient had 99% stenosis of the left diagonal branch, underlying MARIBEL grade 3 flow also has been noted. DESCRIPTION OF PROCEDURE: So now, we have put an XB 3.5 6-[place]unis[place] guiding catheter, Angiomax was given, around two wire were passed which went into the artery. Subsequently, we have to use the Choice Floppy wire, which went in the diagonal branch, which 90-degree to left ventricular artery. Subsequently we put a balloon 3.0 x 10 mm and 3.0 x 8 mm in length noncompliant balloon, balloon angioplasty was done. Subsequently, we put 3.5 x 12 mm length stent and the stent has been fully deployed. The stent was deployed total of about 13 atmosphere and hence that was increased to 3.5 mm in size. Balloon was deflated. Balloon had been discontinued. Angiography was done. Result was satisfactory. There were no complications. CONCLUSIONS: * Prior to performing the procedure: The large diagonal artery arising from left ventricular artery was 99% blocked in proximal one-third of the region * The post-procedure MARIBEL grade 3 flow. Residual stenosis is 0%. * The lesion was calcified 99% blocked, post-procedure MARIBEL grade 3 flow, residual stenosis is 0%. No spasm, no dissection, no thrombosis. Procedure went well. TECHNIQUE PERFORMED: * Emergency case. * Ultrasound of the right radial artery. * Insertion of a 6-[place]isian arterial line in the right radial artery. * Right coronary artery angiography. * Balloon angioplasty of mid region of the right coronary artery with 3.0 x 20 mm in length noncompliant balloon and mid artery side with 3.25 mm in size. * Stenting and angiography of the mid region of the right coronary artery with a 3.0 x 26 mm in length Ge [place] drug-eluting stent of [employer]. * Intravascular ultrasound of the right coronary artery. * Angioplasty of the right coronary artery stented region with 3.5 x 20 mm in length noncompliant balloon and mid artery to 3.5 mm in size. INDICATIONS: The patient has a long segment, 99% stenosis of the right coronary artery in the entire medial segment. MARIBEL grade 2 flow has been noted. DESCRIPTION OF PROCEDURE: Risks and benefits have been explained. The patient was brought to earth science laboratory technician with the right radial area thoroughly cleaned with soap and Betadine. A 6-Tunisian arterial line also has been previously placed. We also gave IV Angiomax. We had put a MANN catheter. A right coronary angiography was done. Angiomax started and two wires were passed. We put a balloon 3.0 x 20 mm length noncompliant balloon and taken up to 25 atmospheres. Proximal, mid and distal region of the lesion cleared and the whole standard balloon widely opened, almost to 3.25 mm. Subsequently, we have deployed a stent at 3.0 x 26 mm length, Ge [place] stent from the [employer] inflated up to 15 atmospheres. Stent size was increased to 3.25 mm balloon deflated. Subsequently we intravascular ultrasound so now, we have put a noncompliant 3.5 balloon, which is 15 mm length and we inserted proximal and the distal region of the stent in artery to 3.5 mm in size. The procedure went well and balloon, wire, catheter all have been discontinued now. CONCLUSION: * Prior to performing the procedure #1, the mid region of the right coronary artery is 99% type 3 lesion, bifurcation lesion and calcified lesion. * Post procedure, MARIBEL grade 3 flow, residual stenosis is 0%. * No spasm. No dissection. No thrombosis. IMPRESSION: * Normal left main. * Left main dividing left artery and the circumflex artery, the left anterior descending artery ventricle is widely open, mild diffuse plaque noted all over. * The diagonal artery is a very large artery and diagonal artery at the proximal one-third region is narrowed in the range of 99%, but it is a very large artery of at least 3.5 mm. * The circumflex artery is moderately large artery. The fourth margin of branch has got 90% narrowing. * The second margin branch has got moderate-degree plaque, had been noted in the anterior proximal region. * The [place] circumflex artery widely open without any stenosis. * The right coronary artery is a large dominant artery. Right coronary artery been narrowed, long segment in the range of 99%, MARIBEL grade 2 flow has been noted from mid to distal region of the right coronary artery. * The ejection fraction of the left ventricle is 60%. TECHNIQUE PERFORMED: * Left coronary artery angiography. * Balloon angioplasty of the left obtuse marginal artery with a 2.0 x 12 mm length semi-compliant balloon. INDICATIONS: The patient has underlying 90% stenosis of the left obtuse marginal artery. DESCRIPTION OF PROCEDURE: Risks and benefits discussed. We have put an XB 3.5 6-Tunisian guiding catheter. Angiomax was given. We also put a [place] wire, which went into the left first obtuse marginal artery. We had 2.0 x 12 mm length balloon and balloon angioplasty was done. We are taking the balloon up to 9 atmospheres and the balloon had been fully inflated. Angiography was done. Result was satisfactory. Stenting was not done because it was a small artery. CONCLUSIONS: * Prior to performing the procedure #1, the left obtuse marginal artery was 90% block. MARIBEL grade 3 flow. * Post procedure, MARIBEL grade 3 flow, residual stenosis is 0%. * No spasm. No dissection. No thrombosis. EXAM: LIMITED Two-dimensional and M-mode echocardiogram. Blood Pressure: 172/94 mmHg INDICATION Pre-Op RISK FACTORS Obesity: Height: 5' 8", Weight: 286 DIMENSIONS LVDd 4.9 (3.8-5.7cm) LA (2D) 4.2 (1.9-4.0cm) Aortic Root (2.0- 3.7cm) LVDs 3.8 (2.5-4.0cm) LA (MM) (1.9-4.0cm) Aortic Cusp Exc (1.5- 2.0cm) EF (%) 45.0 (55-70%) Rt. [place]rium 5.2 (1.9-4.0cm) Asc. Aorta cm IVSd 1.2 (0.7-1.1cm) RV (D) (1.8-2.4cm) PWd 1.4 (0.7-1.1cm) Mitral Valve Mitral Mitral Stenosis E wave 0.90m/s MV Mean GR. mmHg A wave 0.90m/s MV Peak GR. mmHg E/A ratio 1.0 2D MVA cm2 Aortic Valve Aortic Valve Aortic Stenosis V1 0.90m/s AO Mean GR. 9mmHg V2 2.00m/s AO Peak GR. 16mmHg Other Information Quality : Technically Limited Rhythm : Technically limited study due to body habitus. Conclusion MILD LVH AND MILD LV DIASTOLIC DYSFUNCTION LV EF IS 50% AND IS LOW NORMAL MILD DYSKINESIS OF IVS RV AND RA ARE SLIGHTLY DILATED IT IS CHRONIC RV STRAIN PATTERN NORMAL VALVES NO EFFUSION RVSP NOT AVAILABLE Condition at Discharge: Poor Final Diagnosis/Problems List # Chronic Right Heart Strain due to ACS - Stress Test POSITIVE FOR ISCHEMIA - LHC DONE WITH PCI see operative report # Lumbar Stenosis - Surgery by Dr. Rivera after angiogram # Mild Chronic Systolic CHF - EF50% - Monitor for fluid overload # DM2 A1c 6.2 - SSI # Morbidly Obese - Stitch Bonding Machine Tender on weight loss - Consider Bariatric Surgery as outpatient Discharge Disposition: Detention Facility Discharge Instruct/Medications Diet: Cardiac 2g Na,low cholest (2 gm sodium, low cholesterol) Activity: Light activity Follow Up/Referral: Dr. Rivera Pain Mgmnt Medications: see med [facility] Discharge Statement: "Patient was advised to return to the ER or call 911 if any headaches, dizziness, shortness of breath, chest pain, abdominal pain, bleeding, fevers, or worsening of medical condition. Patient was counseled about treatment plan, medications, possible side effects, patientverbalized understanding. All questions were answered to the best of my ability. This discharge took greater then 30 minutes in planning, reviewing documentation, counseling the patient, and discussing with other team members." ASSESSMENT ASSESSMENT Assessment Date of Service: April 06, 2025 Billing Provider: LYRIC ZHENG MD Common Visit Codes: 20955-JFJ/OBS DISCH DAY >30min LYRIC ZHENG MD April 06, 2025 10:28
[2025-04-06 13:00] VITALS: BP 138/76; PULSE 63; RESP 19; TEMP 98.1; O2SAT 98
[2025-04-06 13:40] VITALS: BP 138/76; PULSE 76; RESP 19; TEMP 98.3; O2SAT 96
--- NOTE | 2025-04-06 13:59 | DVHPN2 ---
Progress Note - Dictate Date Seen: April 06, 2025 Medical Necessity Reason Pt with a Central, PICC or Fol: No Subjective Patient was seen and evaluated in follow up. No overnight events. Patient reports feeling well today. Per CM, the patient and his are agreeable with SNF placement. Patient is pending placement at [facility]. Patient is cardiac stable for discharge. vital signs Vital Sign Date Time Temp Pulse Resp B/P (MAP) Pulse Ox O2 Delivery O2 Flow Rate FiO2 04/06/25 08:47 97.9 68 19 149/82 (104) 90 97.9 04/06/25 08:00 Room Air* 0 21 Total Intake and Output 04/05/25 04/05/25 04/06/25 15:00 23:00 07:00 Intake Total 1040 ml 210 ml Output Total 725 ml 900 ml Balance 315 ml -690 ml medications Current Medications Medications Dose Ordered Sig/Gideon Route Start Time Stop Time Status Last Admin Dose Admin Acetaminophen/ Hydrocodone Bitart 1 tab Q4HP PRN PO 03/31/25 12:45 04/06/25 08:40 1 TAB Ondansetron HCl 4 mg Q4HP PRN IV 03/31/25 12:45 Acetaminophen 650 mg Q6HP PRN PO 03/31/25 12:45 Morphine Sulfate 2 mg Q4HPRN PRN IV 03/31/25 12:45 04/03/25 09:48 2 MG Diagnostic Test (Pha) 1 strip ACHS 03/31/25 17:00 04/06/25 06:46 1 STRIP Insulin Human Regular ACHS SC 03/31/25 17:00 04/06/25 06:48 2 UNITS Dextrose 50 ml UD PRN IV 03/31/25 13:00 Hydrochlorothiazide 25 mg DAILY PO 04/01/25 10:00 04/06/25 08:43 25 MG Pantoprazole Sodium 40 mg DAILY IV 04/01/25 10:00 04/06/25 08:41 40 MG Lisinopril 40 mg DAILY PO 04/01/25 13:00 04/06/25 08:43 40 MG Ergocalciferol 50,000 unit Q7D PO 04/03/25 09:30 04/03/25 18:36 50,000 UNIT Aspirin 81 mg DAILY PO 04/05/25 10:00 04/06/25 08:41 81 MG Atorvastatin Calcium 80 mg HS PO 04/05/25 22:00 04/05/25 21:21 80 MG Amlodipine Besylate 10 mg DAILY PO 04/06/25 10:00 04/06/25 08:42 10 MG Ticagrelor 90 mg BID PO 04/06/25 10:00 04/06/25 08:41 90 MG Carvedilol 12.5 mg Q12HR PO 04/05/25 22:00 04/06/25 08:42 12.5 MG objective GENERAL: Alert and oriented x 3. No acute distress. EYES: PERRL, EOMI. Anicteric. HENT: Moist mucous membranes. LUNGS: Diminished breath sounds. CARDIOVASCULAR: Regular rate and rhythm. ABDOMEN: Soft, nontender and nondistended. EXTREMITIES: No edema. NEUROLOGIC: No focal neurological deficits. SKIN: Warm, dry. laboratory and microbiology Laboratory Tests 04/01/25 06:18 Test 04/01/25 06:18 Range/Units Serum Glucose 126 H 74-106 mg/dL Problem List Chronic Right Heart Strain. Spinal stenosis. Uncontrolled HTN. Morbid obesity. HLD. Chronic Systolic CHF. DM2. Assessment/Plan Continued all current supportive medical care. Morphine and [place] for pain management. Amlodipine, Lisinopril, Coreg. Aspirin, Lipitor, Brilinta. GI prophylactics. Additional plan as per the hospital course. Dietary Evaluation Review Comments: Upgrade to CCHO-60 diet to accommondate Pt's energy needs Expected Outcomes/Goals: Gradual wt loss, controlled DM Plan discussed with: Patient JANICE BRANCH MD April 06, 2025 11:26
== END 2025-04-06 15:00 | DRG 322 ==
LOC: ER 10:30 → OVERFLOW 12:39 → CENTRAL 14:58
PROVIDERS: ADMIT Internal Medicine; ATTEND Internal Medicine
PROC: 02703ZZ Dilation of Coronary Artery, One Artery, Percutaneous Approach (ICD-10-PCS; principal; 2025-04-04)
PROC: 027135Z Dilation of Coronary Artery, Two Arteries with Two Drug-eluting Intraluminal Devices, Percutaneous Approach (ICD-10-PCS; 2025-04-04)
PROC: 03HY32Z Insertion of Monitoring Device into Upper Artery, Percutaneous Approach (ICD-10-PCS; 2025-04-04)
PROC: 4A023N7 Measurement of Cardiac Sampling and Pressure, Left Heart, Percutaneous Approach (ICD-10-PCS; 2025-04-04)
PROC: B211YZZ Fluoroscopy of Multiple Coronary Arteries using Other Contrast (ICD-10-PCS; 2025-04-04)
PROC: B215YZZ Fluoroscopy of Left Heart using Other Contrast (ICD-10-PCS; 2025-04-04)
PROC: B240ZZ3 Ultrasonography of Single Coronary Artery, Intravascular (ICD-10-PCS; 2025-04-04)
DX: I24.9 Acute ischemic heart disease, unspecified (principal); I50.22 Chronic systolic (congestive) heart failure; Z68.42 Body mass index [BMI] 45.0-49.9, adult; I25.10 Atherosclerotic heart disease of native coronary artery without angina pectoris; M48.07 Spinal stenosis, lumbosacral region; M51.16 Intervertebral disc disorders with radiculopathy, lumbar region; E66.01 Morbid (severe) obesity due to excess calories; E78.5 Hyperlipidemia, unspecified; E11.9 Type 2 diabetes mellitus without complications; G89.29 Other chronic pain; I11.0 Hypertensive heart disease with heart failure; M48.062 Spinal stenosis, lumbar region with neurogenic claudication; M51.17 Intervertebral disc disorders with radiculopathy, lumbosacral region; Z91.199 Patient's noncompliance with other medical treatment and regimen due to unspecified reason; Z87.440 Personal history of urinary (tract) infections; Z83.3 Family history of diabetes mellitus; Z82.49 Family history of ischemic heart disease and other diseases of the circulatory system; Z88.0 Allergy status to penicillin; Z79.899 Other long term (current) drug therapy
CPT/HCPCS: 36415; 71045; 72131; 72158; 78452; 80048; 80053; 81001; 82306; 82962; 83036; 83605; 84484; 85025; 85610; 85730; 86141; 86850; 86900; 86901; 92928; 92929; 92937; 93005; 93017; 93306; 93458; 96374; 99152; G0378; J0153; J1815; J1885; J2003; J2250; J2470; Q9967

== ENCOUNTER 2025-06-05 11:23 | Outpatient (CLI) | payer OTHER ==
[2025-06-05 11:53] LABS: Hematocrit 39.7 % (41.0-53.0); Hemoglobin 14.1 g/dL (13.5-17.5); Mean Corpuscular Hemoglobin 29.3 pg (28.0-32.0); Mean Corpuscular Volume 82.5 fL (80.0-100.0); Nucleated Red Blood Cells % 0.1 %
[2025-06-05 12:17] LABS: Alanine Aminotransferase 18 U/L (7-40); Albumin 4.6 g/dL (3.2-4.8); Alkaline Phosphatase 106 U/L (46-116); Calcium 10.3 mg/dL (8.7-10.4); Carbon Dioxide 28 mmol/L (20-31); Chloride 104 mmol/L (98-107); Glucose 86 mg/dL (74-106); Potassium 3.5 mmol/L (3.5-5.1); Triglycerides 113 mg/dL (< 150)
[2025-06-05 12:18] LABS: Anion Gap 10 (5-15); BUN/Creatinine Ratio 21.0 (10.0-20.0); Bilirubin, Total 0.7 mg/dL (0.2-1.0); Blood Urea Nitrogen 17 mg/dL (9-23); Cholesterol 162 mg/dL (< 200); Sodium 142 mmol/L (136-145); Total Protein 7.6 g/dL (5.7-8.2)
[2025-06-05 12:20] LABS: HDL Cholesterol 39 mg/dL (40-59)
== END 2025-06-05 17:00 | disposition home or self-care (01) ==
LOC: LAB 11:23
PROVIDERS: ATTEND Nurse Practitioner
DX: I10 Essential (primary) hypertension (principal); E78.5 Hyperlipidemia, unspecified
CPT/HCPCS: 36415; 80053; 80061; 83036; 84153; 84443; 85025

== ENCOUNTER → 2025-09-15 | Outpatient (CLI) | payer OTHER ==
[2025-09-15 10:36] LABS: Alanine Aminotransferase 16 U/L (7-40); Anion Gap 11 (5-15); BUN/Creatinine Ratio 16.5 (10.0-20.0); Blood Urea Nitrogen 13 mg/dL (9-23); Calcium 9.2 mg/dL (8.7-10.4); Carbon Dioxide 29 mmol/L (20-31); Chloride 102 mmol/L (98-107); Potassium 3.7 mmol/L (3.5-5.1); Sodium 142 mmol/L (136-145); Total Protein 7.7 g/dL (5.7-8.2); Triglycerides 101 mg/dL (< 150)
[2025-09-15 10:37] LABS: Albumin 4.4 g/dL (3.2-4.8); Bilirubin, Total 0.6 mg/dL (0.2-1.0); Cholesterol 117 mg/dL (< 200); HDL Cholesterol 47 mg/dL (40-59)
[2025-09-15 10:39] LABS: Alkaline Phosphatase 138 U/L (46-116); Glucose 115 mg/dL (74-106)
== END | disposition home or self-care (01) ==
LOC: LAB 09:41
PROVIDERS: ATTEND Nurse Practitioner
DX: E11.9 Type 2 diabetes mellitus without complications (principal); E78.5 Hyperlipidemia, unspecified
CPT/HCPCS: 36415; 80053; 80061; 83036